=== PATIENT | female | born 1960 | race Caucasian/White ===

== ENCOUNTER 2022-07-30 14:29 | Outpatient (CLI) | payer BC, SELFPAY ==
--- NOTE | ~2022-07-30 | DEXA_ITS ---
Bone Density Report Name: RISHABH CONNER Age: 62 Sex: Female Ethnicity: White Date of : 1960 Indication: postmenopausal; screening for osteoporosis; parental hip fracture; prior fracture; Referring Provider: WEST, ERA Study: Bone densitometry was performed. Exam Date: July 30, 2022 Accession number: [id number] Bone Density: Region BMD T-score Z-score Classification AP Spine(L1-L4) 1.138 0.8 2.3 Normal Femoral Neck (Left) 0.649 -1.8 -0.5 Osteopenia Total Hip (Left) 0.895 -0.4 0.6 Normal Femoral Neck (Right) 0.635 -1.9 -0.6 Osteopenia Total Hip (Right) 0.938 0.0 0.9 Normal Total Hip Mean 0.917 -0.2 0.8 Normal World Health Organization criteria for BMD impression classify patients as: Normal (T-score at or above -1.0), Osteopenia (T-score between -1.0 and -2.5), or Osteoporosis (T-score at or below -2.5). 10-year Fracture Risk(1): Major Osteoporotic Fracture 29% Hip Fracture 3.6% Reported Risk Factors: [place] (), Neck BMD=0.635, BMI=26.6, previous fracture, parental fracture, smoking (1) FRAX(R) Version 3.08. Fracture probability calculated for an untreated patient. Fracture probability may be lower if the patient has received treatment. Clinical Information Provided by Patient: Has had a low trauma fracture Parent has had a hip fracture Smokes Has used the following medications: HRT (i.e. estrogen/hormone therapy), Vitamin D Patient maximum height was 65 Menopause Age: 57 No regular weight bearing exercise Drinks caffeinated beverages Onset of menses at age 12 Number of children 4 Impression: The patient has low bone mass, based on the Right Femoral Neck T-score. The patient has an estimated ten-year risk of hip fracture of 3.6% and an estimated ten-year risk of major fracture of 29%, based on the WHO FRAX algorithm. The patient has risk factors, including: parental hip fracture, smoking, previous fracture. Discussion: BONE DENSITY IS LOW AT ONE OR MORE SKELETAL SITES. THE PATIENT'S BMD AND CLINICAL RISK FACTORS CONTRIBUTE TO THIS PATIENT'S HIGH RISK OF FRACTURE. This patient's lowest T-score is low at one or more skeletal sites. It meets the World Health Organization's (WHO) criteria for ?low bone mass? (T-score between -1.0 and -2.5). The patient's 10-year risk of hip fracture and 10 year risk of a major osteoporotic fracture as calculated by FRAX exceeds the threshold where pharmacological therapy is recommended by the National Osteoporosis Foundation (NOF). However, all treatment decisions require clinical judgment and consideration of individual patient factors, including patient preferences, comorbidities, previous drug use, risk factors not captured in the FRAX model (e.g., frailty, falls, vitamin D deficiency, increased bone
--- NOTE | ~2022-07-30 | MM_ITS ---
EXAMINATION: MM scrn lukas implant BI w nannette HISTORY: Screening mammogram TECHNIQUE: Craniocaudal and mediolateral oblique 3-D tomosynthesis images with implant displacement a nd synthetic 2-D images were generated. Craniocaudal and mediolateral oblique views of the breasts wi thout implant displacement were obtained using full field digital mammography. CAD analysis was submi tted and interpreted. COMPARISON: No prior mammogram is available for comparison at this institution. BREAST PARENCHYMAL COMPOSITION: There are scattered areas of fibroglandular density. FINDINGS: There are bilateral subpectoral silicone implants. There is no evidence of suspicious mass, calcification, or architectural distortion to suggest malignancy in either breast. There has been no suspicious interval change. IMPRESSION: 1. No mammographic evidence of malignancy. 2. Recommend routine screening mammography in one year. BI-RADS Category 1: Negative Reviewed, dictated and finalized at location B. TWIST OPERATOR
== END 2022-07-30 14:30 | disposition home or self-care (01) ==
LOC: ANHIMG 14:34
PROVIDERS: PCP Nurse Practitioner Family; Visit Provider Nurse Practitioner
DX: Z12.31 Encounter for screening mammogram for malignant neoplasm of breast (principal); Z13.820 Encounter for screening for osteoporosis; Z78.0 Asymptomatic menopausal state; M85.852 Other specified disorders of bone density and structure, left thigh; M85.851 Other specified disorders of bone density and structure, right thigh
CPT/HCPCS: 77063; 77067; 77080

== ENCOUNTER → 2023-01-07 09:02 | Outpatient (CLI) | payer BC, SELFPAY ==
--- NOTE | ~2023-01-07 | XR_ITS ---
XR abdomen/kub 1V 01/07/2023 09:17 INDICATION: Gross hematuria TECHNIQUE: KUB COMPARISON: None FINDINGS: Bowel gas pattern is normal. There are cholecystectomy clips. Moderate colonic fecal loadin g. There is no evidence of free air, mass, organomegaly, ascites or obstruction. No abnormal calculi are seen. The bones appear intact. IMPRESSION: 1: No acute abdominal abnormality identified. Reviewed, dictated and finalized at location B.
--- NOTE | ~2023-01-07 | CT_ITS ---
EXAMINATION: CT abdomen pelvis wo/w con DATE: 01/07/2023 09:50 INDICATION: Gross hematuria TECHNIQUE: Computed tomography (CT) of the abdomen and pelvis was performed without and with 130 cc O mnipaque 350 intravenous contrast. The dose-length product was 958.91 mGy-cm. Automated exposure cont rol and iterative reconstruction technique were employed. COMPARISON: KUB dated 01/07/2023 FINDINGS: There are bilateral breast implants. Heart size normal. There is dependent atelectasis. No significant pleural or pericardial effusion. There is atherosclerosis without aneurysm. No lymphadeno tarah. There are small subcentimeter cysts of the liver. 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 The spleen, pancreas, adrenal glands and left kidney are unremarkable otherw ise. There is a small subcentimeter hypodensity of the right kidney, too small to characterize. Nonob structive bowel pattern. Bladder is grossly unremarkable. No hydronephrosis. No abnormal pelvic justina s or fluid collections. No acute osseous abnormality. No free air or free fluid. IMPRESSION: 1. 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 Reviewed, dictated and finalized at location B.
[2023-01-07 09:30] LABS: Estimated Glomerular Filt Rate > 60
== END ==
PROVIDERS: PCP Nurse Practitioner Family; Visit Provider Nurse Practitioner Family
DX: R31.0 Gross hematuria (principal); Q62.5 Duplication of ureter
CPT/HCPCS: 74018; 74178; Q9967

== ENCOUNTER 2023-12-23 13:02 | Outpatient (CLI) | payer OTHER, BC, SELFPAY ==
--- NOTE | ~2023-12-23 | MMUS_ITS ---
EXAMINATION: MM diagnostic lukas BI w nannette, US breast RT limited HISTORY: Lump and lateral aspect of right nipple TECHNIQUE: Implant displaced MLO, MLO and CC 3-D tomosynthesis images of both breasts were performed and synthetic 2-D images were generated. Bilateral implant ML, MLO and CC views. CAD analysis was sub mitted and interpreted. High resolution targeted 8:00 lateral right periareolar breast ultrasound was performed. COMPARISON: 07/30/2022 bilateral implants screening mammogram BREAST PARENCHYMAL COMPOSITION: There are scattered areas of fibroglandular density. FINDINGS: MAMMOGRAPHIC FINDINGS: Status post bilateral augmentation mammoplasty. No suspicious mass or architectural distortion, malignant calcification, skin thickening or retractio n or significant new or developing density is detected. ULTRASOUND: No suspicious mass or shadowing, cyst or other significant sonographic abnormalities detected in the area of clinical complaint at 8:00 near the nipple. IMPRESSION: 1. No evidence of malignancy 2. Routine annual mammographic screening is recommended BI-RADS Category 1: Negative Reviewed, dictated and finalized at location B. IMPRESSION: 1. No evidence of malignancy 2. Routine annual mammographic screening is recommended BI-RADS Category 1: Negative
== END 2023-12-23 13:03 | disposition home or self-care (01) ==
LOC: ANHIMG 13:15
PROVIDERS: PCP Family Medicine; Visit Provider Nurse Practitioner
DX: N63.10 Unspecified lump in the right breast, unspecified quadrant (principal); Z98.82 Breast implant status
CPT/HCPCS: 76642; 77062; 77066; G0279

== ENCOUNTER 2024-08-03 08:12 | Outpatient (CLI) | payer BC, SELFPAY ==
--- NOTE | ~2024-08-03 | DEXA_ITS ---
Bone Density Report Name: RISHABH CNONER Age: 64 Sex: Female Ethnicity: White Date of : 1960 Indication: postmenopausal; screening for osteoporosis; parental hip fracture; prior fracture; Referring Provider: WEST, ERA Study: Bone densitometry was performed. Exam Date: August 03, 2024 Accession number: [id number] Bone Density: Region BMD T-score Z-score Classification AP Spine(L1-L4) 1.123 0.7 2.3 Normal Femoral Neck (Left) 0.659 -1.7 -0.3 Osteopenia Total Hip (Left) 0.898 -0.4 0.7 Normal Femoral Neck (Right) 0.638 -1.9 -0.5 Osteopenia Total Hip (Right) 0.911 -0.3 0.8 Normal Total Hip Mean 0.904 -0.4 0.8 Normal World Health Organization criteria for BMD impression classify patients as: Normal (T-score at or above -1.0), Osteopenia (T-score between -1.0 and -2.5), or Osteoporosis (T-score at or below -2.5). 10-year Fracture Risk(1): Major Osteoporotic Fracture 29% Hip Fracture 3.6% Reported Risk Factors: [place] (), Neck BMD=0.638, BMI=24.6, previous fracture, parental fracture, smoking (1) FRAX(R) Version 3.08. Fracture probability calculated for an untreated patient. Fracture probability may be lower if the patient has received treatment. Previous Exams: Region Exam Age BMD T-score BMD Change BMD Change Date g/cm2 vs Baseline vs Previous AP Spine (L1-L4) 08/03/2024 64 1.123 0.7 -0.015 (-1.3%) -0.015 (-1.3%) 07/30/2022 62 1.138 0.8 Total Hip(Left) 08/03/2024 64 0.898 -0.4 0.003 (0.3%)# 0.003 (0.3%)# 07/30/2022 62 0.895 -0.4 Total Hip(Right) 08/03/2024 64 0.911 -0.3 -0.028 (-2.9%) -0.028 (-2.9%) 07/30/2022 62 0.938 0.0 *Denotes significance at 95% confidence level, LSC for AP Spine = 0.022 g/cm2, LSC for Total Hip = 0.027 g/cm2 # Denotes dissimilar scan types or analysis methods Clinical Information Provided by Patient: Has had a low trauma fracture Parent has had a hip fracture Smokes Has used the following medications: HRT (i.e. estrogen/hormone therapy), Vitamin D, Calcium Patient maximum height was 65 Menopause Age: 57 No regular weight bearing exercise Drinks caffeinated beverages Onset of menses at age 12 Number of children 4 Impression: The patient has low bone mass, based on the Right Femoral Neck T-score. The patient has an estimated ten-year risk of hip fracture of 3.6% and an estimated ten-year risk of major fracture of 29%, based on the WHO FRAX algorithm. The patient has risk factors, including: parental hip fracture, smoking, previous fracture. No significant bone loss was observed. Discussion: BONE DENSITY IS LOW AT ONE OR MORE SKELETAL SITES. THE PATIENT'S BMD AND CLINICAL RISK FACTORS CONTRIBUTE TO THIS PATIENT'S HIGH RISK OF FRACTURE. This patient's lowest T-score is low at one or more skeletal sites. It meets the World Health Organization's (WHO) criteria for ?low bone mass? (T-score between -1.0 and -2.5). The patient's 10-year risk of hip fracture and 10 year risk of a major osteoporotic fracture as calculated by FRAX exceeds the threshold where pharmacological therapy is recommended by the National Osteoporosis Foundation (NOF). However, all treatment decisions require clinical judgment and consideration of individual patient factors, including patient preferences, comorbidities, previous drug use, risk factors not captured in the FRAX model (e.g., frailty, falls, vitamin D deficiency, increased bone turnover, interval significant decline in bone density) and possible under or overestimation of fracture risk by FRAX. The patient should follow a healthful lifestyle (good nutrition with adequate calcium and vitamin D, and appropriate weight-bearing exercise). Follow-Up: Consider a repeat BMD and Vertebral Fracture Assessment (VFA) exam in 2 years or sooner if medically necessary, to reassess this patient's status. Reported by: MEDARDO on 08/03/2024 8:50:00 AM. Reviewed, dictated and finalized at location AaMdi POLANCO
== END 2024-08-03 08:13 | disposition home or self-care (01) ==
LOC: ANHIMG 08:15
PROVIDERS: PCP Nurse Practitioner Family; Visit Provider Nurse Practitioner
DX: M85.88 Other specified disorders of bone density and structure, other site (principal); M85.852 Other specified disorders of bone density and structure, left thigh; M85.851 Other specified disorders of bone density and structure, right thigh
CPT/HCPCS: 77080

== ENCOUNTER 2025-02-21 08:27 | Outpatient (CLI) | payer BC, SELFPAY ==
--- NOTE | ~2025-02-21 | MM_ITS ---
EXAMINATION: MM scrn lukas implant BI w nannette HISTORY: Screening mammogram TECHNIQUE: Craniocaudal and mediolateral oblique 3-D tomosynthesis images with implant displacement a nd synthetic 2-D images were generated. Craniocaudal and mediolateral oblique views of the breasts wi thout implant displacement were obtained using full field digital mammography. CAD analysis was submi tted and interpreted. COMPARISON: 12/23/2023, 07/30/2022 BREAST PARENCHYMAL COMPOSITION: There are scattered areas of fibroglandular density. FINDINGS: There is no evidence of suspicious mass, calcification, or architectural distortion to sugg est malignancy in either breast. There has been no suspicious interval change. IMPRESSION: No mammographic evidence of malignancy. Recommend routine screening mammography in one year. BI-RADS Category 1: Negative Reviewed, dictated and finalized at location .
--- OUTSIDE RECORDS SUMMARY | 2025-02-21 08:32 | XMS_ITS | Clinical Summary ---
Author Organization [facility] Address [address] [place] [address] Care Team Providers Care Distillation Operator Name Role Phone Jasmine Anderson MD Primary Care Provider + Source Comments [facility],non-owned Affiliates and Associated Physician Practices is amultiple site organization consisting of ambulatory clinics and hospital sitesin [place], [place], [place] and [place]. This disclosure is being madepursuant to the Care Everywhere program and may not contain all information available regarding this patient. Last updated 18.[facility] Allergies Active Allergy Reactions Criticality Noted Date Comments Amoxicillin Itching Medium 03/15/2021 Codeine Unknown 11/15/2020 Feels like going to passout Medications * Be aware that medications may not be up to date on this document. Alwaysverify current medications with the patient. estradiol (VAGIFEM) 10 MCG vaginal tablet estradiol 10 mcg vaginal tablet INSERT 1 TABLET VAGINALLY TWICE A WEEK Active benzonatate (TESSALON) 200 MG capsule Take 1 (one) capsule by mouth 3 times daily as needed for Cough 30 capsule Active Active Problems No known active problems Immunizations Immunization Administration Dates Next Due INFLUENZA VACCINE, QUADR. (F LUZONE; FLULAVAL; FLUARIX; AFLURIA QUADRIVALENT; 6MO+), 0.5 ML (IIV4) 06/23/2016 Social History Tobacco Use Types Packs/Day Years Used Date Smoking Tobacco: Every Day Cigarettes 0.3 40 Smokeless Tobacco: Never Tobacco Cessation:Ready to Q uit: No; Counseling Given: Yes Alcohol Use Standard Drinks/Week Comments Yes 5 (1 standard drink = 0.6 oz pur e alcohol) occasionally PHQ-2 Answer Date Recorded PHQ2 TOTAL SCORE 0 05/21/2021 Comments No Sex and Gender Information Value Date Recorded Sex Assigned at Not on file Legal Sex Female 7:36 AM CDT Gender Identity Not on file Sexual Orientation Not on file Last Filed Vital Signs Vital Sign Reading Time Taken Comments Blood Pressure 122/78 03/15/2021 12:04 PM CDT Pulse 80 03/15/2021 12:04 PM CDT Temperature 37.1 C (98.8 F) 03/15/2021 12:04 PM CDT Respiratory Rate 20 03/15/2021 12:04 PM CDT Oxygen Saturation 97% 03/15/2021 12:04 PM CDT Inhaled Oxygen Concentration 99% 06/22/2016 1 1:34 AM BRANCH EMPLOYMENT COORDINATOR Weight 70.3 kg (155 lb) 03/15/2021 12:04 PM CDT Height 162.6 cm (5' 4) 03/15/2021 12:04 PM CDT Body Mass Index 26.61 03/15/2021 12:04 PM CDT Plan of Treatment Health Maintenance Due Date Last Done Comments COLOGUARD (AGES 45-75) - COL ON CA SCREENING 1960 COLON MONITORING 1960 COLONOSCOPY - COLON CA SCREENING 1962 CT COLONOGRAPHY - COLON CA SCREENING 1960 Colorectal Cancer Screening 1960 FIT - COLON CA SCREENING 1960 FLEX SIG - COLON CA SCREENING 1960 LIPID TESTING 1960 MAMMOGRAM 1960 HIV SCREENING 1977 HEPATITIS C SCREENING 01/30/1980 DTAP/TDAP/TD VACCINES (1 - Tdap) 1981 PNEUMOCOCCAL VACCINE 50+ (1 of 1 - PCV) 02/04/2012 ZOSTER VACCINE (1 of 2) 02/04/2012 SCREENING FOR DIABETES 11/15/2020 COVID-19 VACCINE (2 - 2023-2 5 season) 2024 10/21/2020 DEPRESSION SCREENING 08/15/2024 INFLUENZA VACCINE (Season Ended) 2025 05/30/2020, 06/23/2016 Respiratory Syncytial Virus (RSV) Vaccine Pt: or over 60 yrs (1 - 1-dose 75+ series) 2037 HEPATITIS B VACCINE Aged Out No longe r eligible based on patient's age to complete this topic HIB VACCINE Aged Out No longer eligi ble based on patient's age to complete this topic HPV VACCINE Aged Out No longer eligi ble based on patient's age to complete this topic MENINGOCOCCAL (Group B) VACCINE SHARED DECISION-MAKING Aged Out No longer eligible based on patient's age to complete this topic MENINGOCOCCAL GROUPS A/C/Y/W VACCINE Aged Out No longer eligible b ased on patient's age to complete this topic Insurance [facility] Care Teams Distillation Operator Relationship Specialty Start Date End Date Jasmine Anderson MD [address] [place] [address] PCP - General 08/21/18
--- OUTSIDE RECORDS SUMMARY | 2025-02-21 08:32 | XMS_ITS | Clinical Summary ---
Author Organization [facility] Address [address] [place] [address] Phone Care Team Providers Care Resource Conservationist Name Role Phone Lou Garcia MD Primary Care Provider + Allergies Active Allergy Reactions Criticality Noted Date Comments Amoxicillin Hives,Itching Medium 03/15/2021 Codeine Hives,Mental status changes Medium 11/15/2020 Feels like going to passout Medications azelastine (ASTELIN) 137 mcg (0.1 %) nasal spray azelastine 137 mcg (0.1 %) nasal spray aerosol USE 1 SPRAY IN EACH NOSTRIL EVERY 12 HOURS Active estradioL (VAGIFEM) 10 mcg tablet estradiol 10 mcg vaginal tablet INSERT 1 TABLET VAGINALLY TWICE A WEEK Active ibandronate (BONIVA) 150 mg tablet [address] (VOLTAREN) 75 mg EC tablet Take 1 tablet (75 mg total) by mouth 2 (two) times a day as needed Active ezetimibe (ZETIA) 10 mg tablet Take 1 tablet (10 mg total) by mouth daily 4 Active latanoprost (XALATAN) 0.005 % ophthalmic solution INSTILL 1 DROP IN BOTH EYES EVERY NIGHT AT BEDTIME 4 Active lifitegrast (Xiidra) 5 % dropperette 0.1 each (1 drop total) 2 (two) times a day Active rosuvastatin (CRESTOR) 20 mg tablet Take 1 tablet (20 mg total) by mouth daily 4 Active benzonatate (TESSALON) 200 mg capsuleIndicatio ns:Acute lower respiratory infection Take 1 capsule (200 mg total) by mouth 3 (three) times a day as needed for cough keep tessalon out of reach of children, especially children under the age of 10, due to possible serious risk such as if ingested by children under the age of 10. 30 capsule 4 Active Additional Information Patient not taking.Reported on 07/31/2024 fluticasone propionate (FLONASE) 50 mcg/actuation nasal sprayIndications :Acute serous otitis media of left ear, recurrence not specified Administer 2 sprays into each nostril daily 1 each 4 Active promethazine-DM (PROMETHAZINE-DM ) 1.25-3 mg/mL syrupIndications :Cough Take 5 mL by mouth every 4 (four) hours as needed for cough 120 mL 4 Active albuterol HFA (PROVENTIL HFA,VENTOLIN HFA,PROAIR HFA) 90 mcg/actuation inhalerIndicatio ns:Lower respiratory infection (e.g., bronchitis, pneumonia, pneumonitis, pulmonitis) Inhale 2 puffs every 6 (six) hours as needed for wheezing or shortness of breath 1 each 4 Active Active Problems Problem Noted Date Diagnosed Date Pain in right foot 07/19/2023 Pain in throat 07/13/2023 Other chest pain 04/13/2023 Palpitations 04/13/2023 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 03/11/2023 Liver cyst 03/11/2023 Arteriosclerosis of coronary artery 01/27/2023 Hyperlipidemia 10/16/2020 Snoring 09/04/2020 Syncope and collapse 07/19/2016 Tobacco dependence syndrome 05/19/2016 Supraventricular tachycardia 09/28/2012 Immunizations Immunization Administration Dates Next Due Influenza, Quadrivalent, Spl it, Preservative Free, Intramuscular 08/10/2021,05/30/2020,06/23/2016 Tdap 03/22/2013 Social History Tobacco Use Types Packs/Day Years Used Date Smoking Tobacco: Never Assessed Comments Unknown Sex and Gender Information Value Date Recorded Sex Assigned at Not on file Legal Sex Female 12:41 AM BENZENE WASHER Gender Identity Not on file Sexual Orientation Not on file Obstetrics History Last Filed Vital Signs Vital Sign Reading Time Taken Comments Blood Pressure 125/82 07/31/2024 6:12 PM BENZENE WASHER Pulse 74 07/31/2024 6:12 PM BENZENE WASHER Temperature 36.8 C (98.2 F) 07/31/2024 6:12 PM BENZENE WASHER Respiratory Rate 18 07/31/2024 6:12 PM BENZENE WASHER Oxygen Saturation 93% 07/31/2024 6:12 PM BENZENE WASHER Inhaled Oxygen Concentration - - Weight 67.7 kg (149 lb 4.8 oz) 07/31/2024 6:12 P M BENZENE WASHER Height 162.6 cm (5' 4.02) 07/31/2024 6:12 PM CS T Body Mass Index 25.61 07/31/2024 6:12 PM BENZENE WASHER Plan of Treatment Health Maintenance Due Date Last Done Comments Cervical Cancer Screening 1960 Colon Cancer Screening-Colonoscopy 1962 Depression Screening 1960 Hepatitis C Screening 1960 Hepatitis B Screening 02/04/1980 Regular Well Visit/Exam 18-64 02/04/1980 Zoster Vaccine (1 of 2) 02/04/2012 DTaP/Tdap/Td Vaccine (2 - Td or Tdap) 03/22/2023 03/22/2013 Breast Cancer Screening-Mammogram 07/30/2023 07/30/2022 Covid-19 Vaccine (3 - season) 2024 06/14/2021, 10/21/2020 Influenza Vaccine (#1) 2025 , 08/10/2021, 05/30/2020, Additional history exists Pneumococcal vaccine <65 Aged Out No longer eligible based on patient's age to complete this topic Insurance [facility] [employer] Care Teams Resource Conservationist Relationship Specialty Start Date End Date Lou Garcia MD [address] [facility] [address] [place] [address] PCP - General Family Medicine 06/09/24
--- OUTSIDE RECORDS SUMMARY | 2025-02-21 08:32 | XMS_ITS | Referral Summary ---
Author Organization [facility] Address [address] [place] [address] Phone Care Team Providers Care Stock Analyst Name Role Phone Lou Garcia MD Primary [...] on file Legal Sex Female 12:41 AM POWER REACTOR OPERATOR Gender Identity Not on file Sexual Orientation Not on file Last Filed Vital Signs Vital Sign Reading Time Taken Comments Blood Pressure 125/82 07/31/2024 6:12 PM POWER REACTOR OPERATOR Pulse 74 07/31/2024 6:12 PM POWER REACTOR OPERATOR Temperature 36.8 C (98.2 F) 07/31/2024 6:12 PM POWER REACTOR OPERATOR Respiratory Rate 18 07/31/2024 6:12 PM POWER REACTOR OPERATOR Oxygen Saturation 93% 07/31/2024 6:12 PM POWER REACTOR OPERATOR Inhaled Oxygen Concentration - - Weight 67.7 kg (149 lb 4.8 oz) 07/31/2024 6:12 P M POWER REACTOR OPERATOR Height 162.6 cm (5' 4.02) 07/31/2024 6:12 PM CS T Body Mass Index 25.61 07/31/2024 6:12 PM POWER REACTOR OPERATOR Plan of Treatment Not on file Insurance [facility] [employer] Care Teams Stock Analyst Relationship Specialty Start Date End Date Lou Garcia MD [address] [place] [address] [address] PCP - General Family Medicine 06/09/24
--- OUTSIDE RECORDS SUMMARY | 2025-02-21 08:32 | XMS_ITS | Data Portability ---
Author Organization [place] [facility], Main Office Address [address] [place] [address] Care Team Providers Care It Project Coordinator Name Role Phone ELIZA GARCIA Primary Care Provider ELIZA GARCIA Referring Provider [phone] Assessment Encounter Date Assessment Date Assessment LastModified by Organization Details LastModified Time 07/20/2023 07/20/2023 63-year-old patient presents today with right foot pain after stepping in correctly and rolling the foot a week ago Tuesday. She presented to the emergency room where x-rays were taken and she was told she had a fracture. She was placed in a boot and told to follow-up with us. She states she has been ambulating well in the boot. Rates her pain a 5/10. imaging: X-rays reviewed of the right foot show a nondisplaced Bourgeois fracture to the base of the 5th metatarsal. Physical exam: Boot was removed. Pain with palpitation over the 5th metatarsal. No issues with ankle range of motion. Able to wiggle toes. Sensation intact. At this time we will keep her nonweightbearing in the boot. She states she has a knee scooter at home to use. We discussed the importance of wearing the boot at all times like it is a cast and keeping weight off of the foot. We will see her back in 2 weeks with repeat x-rays to check her progress. Not available 07/20/2023 21:45:27 08/05/2023 08/05/2023 63-year-old patient presents today for follow up of right 5th metatarsal bourgeois fracture. She was placed in a boot and told to stay nonweightbearing. She states she has been ambulating well with a knee scooter. Rates her pain a 4/10. Imaging: X-rays reviewed of the right foot show a healing nondisplaced Bourgeois fracture to the base of the 5th metatarsal. Physical exam: Boot was removed. Pain with palpitation over the 5th metatarsal. No issues with ankle range of motion. Able to wiggle toes. Sensation intact. At this time she is 4 weeks out from her injury. We will keep her nonweightbearing in the boot for another few weeks. We will see her back in 2 weeks with repeat x-rays to check her progress. Not available 08/05/2023 13:48:09 08/19/2023 08/19/2023 63-year-old patient presents today for follow up of right 5th metatarsal bourgeois fracture. She was placed in a boot and told to stay nonweightbearing. She states she has been ambulating well with a knee scooter. Rates her pain a 0/10. Imaging: X-rays reviewed of the right foot show a healing nondisplaced Bourgeois fracture to the base of the 5th metatarsal. Physical exam: Boot was removed. No pain with palpitation over the 5th metatarsal. No issues with ankle range of motion. Able to wiggle toes. Sensation intact. At this time she about 7 weeks out from her injury. She states she has not been having any pain and would like to try weight bearing. We will have her start weight bearing in the boot for the next week or so and then slowly transition out of it as she feels more comfortable. We discussed to limit herself by her own pain and return to the boot if she does not feel ready. She is in agreement with this plan. We can see her back if her pain returns or if she is having issues with stiffness. Not available 08/19/2023 09:32:02 Plan of Treatment Reminders Order Date Submit Date Provider Last Modified By Organization Details Last Modified Time Details Appointments None recorded. Lab CMP, serum or plasma 2022 023 [facility] (Lab), [address] [place], [address], 19:31:24 Referral None recorded. Procedures None recorded. Surgeries None recorded. Imaging XR, foot, 3 or more view 2023 024 [email or web address] [facility] [place], [address], [place], [address], 4 16:29:36 XR, foot 2022 023 [email or web address] [facility] [place], [address], [place], [address], 3 13:49:25 XR, foot, 3 or more view 2022 023 [email or web address] [facility] [place], [address], [place], [address], 3 21:42:26 Medication Orders Diflucan 150 mg tablet 2023 024 [id number], [address], [place], [place], [id number], 4 16:15:18 Patient TargetsNo targets recorded. Patient InstructionsNo instructions recorded. Reason for Referral None Reported. Results Created Date Observation Date Name Description Value Unit Range Abnormal Flag Note LastModifiedBy Organization Detail LastModifiedTime 03/11/2003/11/2023 COMPR EHENS APRIL METAB OLIC PANEL sodium 137 mmol/ L 137-14 5 Not Available [facility] (Lab) [address] [place], [address], 03/11/2023 19:31:24 03/11/20 23 03/11/2023 COMPR EHENS APRIL METAB OLIC PANEL potassium 4.0 mmol/ L 3.5-5. 1 Not Available [facility] (Lab) [address] [place], [address], 03/11/2023 19:31:24 03/11/20 23 03/11/2023 COMPR EHENS APRIL METAB OLIC PANEL chloride 101 mmol/ L 98-107 Not Available [facility] (Lab) [address] [place], [address], 03/11/2023 19:31:24 03/11/20 23 03/11/2023 COMPR EHENS APRIL METAB OLIC PANEL carbon dioxide 26 mmol/ L 22-30 Not Available [facility] (Lab) [address] [place], [address], 03/11/2023 19:31:24 03/11/20 23 03/11/2023 COMPR EHENS APRIL METAB OLIC PANEL anion gap 14.0 mmol/ L 14-22 Not Available [facility] (Lab) [address] [place], [address], 03/11/2023 19:31:24 03/11/20 23 03/11/2023 COMPR EHENS APRIL METAB OLIC PANEL glucose 88 mg/dL 70-99 Not Available [facility] (Lab) [address] [place], [address], 03/11/2023 19:31:24 03/11/20 23 03/11/2023 COMPR EHENS APRIL METAB OLIC PANEL BUN 13 mg/dL 8-19 Not Available [facility] (Lab) [address] [place], [address], 03/11/2023 19:31:24 03/11/20 23 03/11/2023 COMPR EHENS APRIL METAB OLIC PANEL creatinine 0.72 mg/dL 0.66-1 .25 Not Available [facility] (Lab) [address] [place], [address], 03/11/2023 19:31:24 03/11/20 23 03/11/2023 COMPR EHENS APRIL METAB OLIC PANEL GFR >60 Refer ence Range : [place] [facility] GFR Healt hy Adult : >60 mL/mi n/1.7 3 m2 Chron ic Kidne y Disea se: 15-60 mL/mi n/1.7 3 m2 Kidne y Failu re: <15/m L/min /1.73 m2 www.n iddk. nih.g ov The MDRD study equat ion has not been valid ated in child yajaira <18 years of age; pregn ant women ; the elder ly >85 years of age; or in some racia l or ethni c subgr oups, such as Hispa nics. Outsi de the valid ated veena eters , estim ated GFR is less accur ate, requi ring clini tate judgm ent on a case- by-ca se basis . Clini tate inter preta tion for other races and ages must be made by the clini malcom. The MDRD study equat ion has not been valid ated for the evalu ation of serum creat inine relat ed to nutri baljinder l statu s or medic ation usage . For perso ns <18 years of age, a pedia tric GFR calcu lator is avail able on the [facility] websi te: https ://nubia w.suleiman soriano.o rg/pr ofess ional s/kdo qi/gf r_cal culat or Not Available [facility] (Lab) [address] [place], [address], 03/11/2023 19:31:24 03/11/20 23 03/11/2023 COMPR EHENS APRIL METAB OLIC PANEL alkaline phosphatase 76 U/L 38-126 Not Available [facility] (Lab) [address] [place], [address], 03/11/2023 19:31:24 03/11/20 23 03/11/2023 COMPR EHENS APRIL METAB OLIC PANEL alanine aminotransfe rase 19 U/L 0-35 Not Available [facility] (Lab) [address] [place], [address], 03/11/2023 19:31:24 03/11/20 23 03/11/2023 COMPR EHENS APRIL METAB OLIC PANEL aspartate aminotransfe rase 27 U/L 15-37 Not Available [facility] (Lab) [address] [place], [address], 03/11/2023 19:31:24 03/11/20 23 03/11/2023 COMPR EHENS APRIL METAB OLIC PANEL bilirubin, total 0.50 mg/dL 0.20-1 .30 Not Available [facility] (Lab) [address] [place], [address], 03/11/2023 19:31:24 03/11/20 23 03/11/2023 COMPR EHENS APRIL METAB OLIC PANEL calcium 9.5 mg/dL 8.4-10 .2 Not Available [facility] (Lab) [address] [place], [address], 03/11/2023 19:31:24 03/11/20 23 03/11/2023 COMPR EHENS APRIL METAB OLIC PANEL total protein 7.3 g/dL 6.3-8. 2 Not Available [facility] (Lab) [address] [place], [address], 03/11/2023 19:31:24 03/11/2003/11/2023 COMPR EHENS APRIL METAB OLIC PANEL albumin 4.5 g/dL 3.4-5. 0 Not Available [facility] (Lab) [address] [place], [address], 03/11/2023 19:31:24 03/11/2003/11/2023 COMPR EHENS APRIL METAB OLIC PANEL globulin 2.8 g/dL 2.6-4. 2 Not Available [facility] (Lab) [address] [place], [address], 03/11/2023 19:31:24 03/11/20 23 03/11/2023 COMPR EHENS APRIL METAB OLIC PANEL A/G ratio 1.6 ratio 1.0-2. 0 Not Available [facility] (Lab) [address] [place], [address], 03/11/2023 19:31:24 02/22/20 23 02/18/2023 CT, coron yola calci um score No observ ation record ed. [email or web address] [facility] [address], [place], [address], 02/22/2023 09:03:25 07/15/20 23 07/12/2023 XR, foot, 3 or more view No observ ation record ed. [email or web address] Not Available 08/2022 14:32:31 07/20/20 XR, foot, 3 or more view No observ ation record ed. [email or web address] [facility] [place] [address], [place], [address], 07/20/2023 21:42:25 08/05/20 23 XR, foot No observ ation record ed. [email or web address] [facility] [place] [address], [place], [address], 08/05/2023 13:46:01 08/19/19 XR, foot, 3 or more view No observ ation record ed. [email or web address] [facility] [place] [address] [facility] [address], [place], [address], 08/19/2023 09:28:31 12/23/19 24 12/23/2023 MAMMO , scree eliane, digit al, bilat eral No observ ation record ed. [email or web address] [facility] [address], [place], [address], 12/25/2023 17:03:11 08/03/20 24 08/03/2024 imagi ng/di agnos tic resul t No observ ation record ed. [facility] [address], [place], [address], 08/03/2024 16:28:07 Result Notes None recorded. 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 SUNI Hollins [address], [place], [address] , [employer] 3 15:46:12 Liver cyst 62548895 Active 2022 SUNI Hollins [address], [place], [address] , [employer] 3 15:48:02 Pain in throat 736382431 Active 2022 Eliza Garcia MD [address], [place], [address] , [employer] 3 17:35:48 Pain in right foot 2800748281607 07 Active 2022 Edna Brown [facility], [facility] 3 11:14:46 Candidiasi s of skin 55975721 Active 2023 CHELE Day [address], [place], [address] , [employer] 4 16:13:22 Candidiasi s of vagina 37557855 Active 2023 CHELE Day [address], [place], [address] , [employer] 4 16:13:27 Overweight 332361095 Active 2023 CHELE Day [address], [place], [address] , [employer] 4 16:19:36 Problem Notes None recorded. Procedures Surgical History Date Name Laterality Status Provider Name and Address Organization Details Recorded Time Cholecystectomy completed Not Available [employer] 10/13/2022 12:52:25 ligation of fallopian tube completed Not Available [facility] 10/13/2022 12:52:25 Unlisted procedure shoulder completed Not Available [facility] 10/13/2022 12:52:25 Imaging Results None recorded. Procedure Notes None recorded. Medical Equipment None Reported. Allergies Allergen ID Allergen Name Allergen Category Reaction Reaction Severity Criticality Documentation Date Start Date Code Code System Note Provider Name and Address Organization Details Recorded Time 21161 amoxicill in medicatio n itching moderate Not available 10/13/2022 723 RxNorm Not Available [facility] 3 12:58:44 73816 codeine medicatio n Not available Not available Not available 07/20/2023 2670 RxNorm TALYA Martinez, [facility] 3 11:09:35 Medications Name Sig Start Date Stop Date Status Note LastModified by Organization Details LastModified Time progester one 225mg caps TAKE ONE CAPSULE BY MOUTH daily EVERY EVENING 06/13 completed Not Available Not Available Not Available cp progester one 225mg caps TAKE 1 CAPSULE BY MOUTH IN THE EVENING 06/13 completed Not Available Not Available Not Available cp progester one 225mg caps eaches 06/13 completed Not Available Not Available Not Available amoxicill in 500 mg capsule 07/20 completed Not Available Not Available Not Available latanopro st 0.005 % eye drops INSTILL 1 DROP IN BOTH EYES EVERY NIGHT AT BEDTIME active Not Available Not Available No t Available fluconazo le 100 mg tablet 07/20 completed Not Available Not Available Not Available promethaz ine-DM 6.25 mg-15 mg/5 mL oral syrup TAKE 5 ML BY MOUTH EVERY 4 HOURS NEEDED FOR COUGH 06/13 completed Not Available Not Available Not Available doxycycli ne hyclate 100 mg capsule active Not Available Not Available Not Available clindamyc in HCl 300 mg capsule TAKE 1 CAPSULE BY MOUTH EVERY 6 HOURS active Not Available Not Available No t Available azithromy ivonne 250 mg tablet TAKE 2 TABLETS BY MOUTH FOR 1 DAY THEN TAKE 1 TABLET BY MOUTH DAILY FOR 4 DAYS 06/13 completed Not Available Not Available Not Available Lidocaine Viscous 2 % mucosal solution 07/20 completed Not Available Not Available Not Available fluconazo le 150 mg tablet TAKE 1 TABLET BY MOUTH AT ONSET OF SYMPTOMS . MAY REPEAT IN 3 DAYS NEEDED active Not Available Not Available No t Available benzonata te 200 mg capsule TAKE 1 CAPSULE THREE TIMES DAILY NEEDED FOR COUGH. KEEP OUT OF THE REACH OF CHILDREN ESPECIAL LY UNDER THE AGE OF 10 DUE TO RISK OF 06/13 completed Not Available Not Available Not Available clarithro mycin 500 mg tablet 07/20 completed Not Available Not Available Not Available hydrocodo ne 5 mg-acetam inophen 325 mg tablet 07/20 completed Not Available Not Available Not Available promethaz ine 6.25 mg/5 mL oral syrup 07/20 completed Not Available Not Available Not Available metronida zole 0.75 % (37.5 mg/5 gram) vaginal gel I 1 APL VAGINALL Y HS FOR 5 DAYS 07/20 completed Not Available Not Available Not Available prednison e 20 mg tablet TAKE 2 TABLETS BY MOUTH EVERY DAY FOR 5 DAYS 06/13 completed Not Available Not Available Not Available prednison e 5 mg tablet 06/13 completed Not Available Not Available Not Available terconazo le 0.8 % vaginal cream INSERT 1 APPLICAT ORFUL VAGINALL Y AT BEDTIME FOR 3 DAYS 07/20 completed Not Available Not Available Not Available penicilli n V potassium 500 mg tablet 07/20 completed Not Available Not Available Not Available ciproflox acin 500 mg tablet TK 1 T PO BID 07/20 completed Not Available Not Available Not Available sulfameth oxazole 800 mg-trimet hoprim 160 mg tablet Take 1 tablet every 12 hours by oral route for 3 days. 07/20 completed Not Available Not Available Not Available doxycycli ne monohydra te 100 mg tablet 07/20 completed Not Available Not Available Not Available terconazo le 80 mg vaginal supposito ry 07/20 completed Not Available Not Available Not Available amoxicill in 875 mg tablet Take 1 tablet every 12 hours by oral route for 10 days. active Not Available Not Available No t Available benzonata te 100 mg capsule 10/30 /2024 completed Not Available Not Available Not Available triamcino lone acetonide 40 mg/mL suspensio n for injection Take 40 mg by injectio n route. 07/20 completed Not Available Not Available Not Available cephalexi n 500 mg capsule 07/20 completed Not Available Not Available Not Available oseltamiv ir 75 mg capsule Take 1 capsule twice a day by oral route for 5 days. 07/20 completed Not Available Not Available Not Available clotrimaz ole-betam ethasone 1 %-0.05 % topical cream APPLY EXTERNAL LY TO RASH TWICE DAILY FOR 7 DAYS 07/20 completed Not Available Not Available Not Available diclofena c sodium 75 mg tablet,de layed release TAKE 1 TABLET BY MOUTH TWICE DAILY NEEDED 06/13 completed Not Available Not Available Not Available azelastin e 137 mcg (0.1 %) nasal spray USE 1 SPRAY IN EACH NOSTRIL EVERY 12 HOURS 07/20 completed Not Available Not Available Not Available levofloxa ivonne 500 mg tablet TK 1 T PO QD 07/20 completed Not Available Not Available Not Available methylpre dnisolone 4 mg tablets in a dose pack FOLLOW PACKAGE DIRECTIO NS 06/13 completed Not Available Not Available Not Available albuterol sulfate HFA 90 mcg/actua tion aerosol inhaler INHALE 2 PUFFS BY MOUTH EVERY 6 HOURS NEEDED FOR WHEEZING OR SHORTNES S OF BREATH 06/13 completed Not Available Not Available Not Available oxybutyni n chloride 5 mg tablet 12/24 completed Not Available Not Available Not Available cefdinir 300 mg capsule 07/20 completed Not Available Not Available Not Available fluticaso ne propionat e 50 mcg/actua tion nasal spray,stevan pension SHAKE LIQUID AND USE 1 TO 2 SPRAYS IN EACH NOSTRIL TWICE DAILY 07/20 completed Not Available Not Available Not Available doxycycli ne hyclate 100 mg tablet TAKE 1 TABLET BY MOUTH TWICE DAILY FOR 10 DAYS 07/20 completed Not Available Not Available Not Available amoxicill in 875 mg-potass ium clavulana te 125 mg tablet 07/20 completed Not Available Not Available Not Available Zetia 10 mg tablet Take 1 tablet every day by oral route. active Not Available Not Available No t Available rosuvasta tin 5 mg tablet TAKE 1 TABLET BY MOUTH EVERY DAY active Not Available Not Available No t Available rosuvasta tin 20 mg tablet TAKE 1 TABLET BY MOUTH DAILY active Not Available Not Available No t Available nitrofura ntoin monohydra te/macroc rystals 100 mg capsule TAKE 1 CAPSULE BY MOUTH EVERY 12 HOURS FOR 7 DAYS 07/20 completed Not Available Not Available Not Available duloxetin e 20 mg capsule,d elayed release TK 1 C PO BID 12/24 completed headache Not Available Not Available Not Available ibandrona te 150 mg tablet 06/13 completed Not Available Not Available Not Available estradiol 10 mcg vaginal tablet INSERT ONE TABLET VAGINALL Y TWICE WEEKLY 06/13 completed Not Available Not Available Not Available ROUTE [employer]OR Thyroid 30 mg tablet TAKE 1 TABLET BY MOUTH TWICE DAILY 06/13 completed Not Available Not Available Not Available ROUTE [employer]OR Thyroid 60 mg tablet TAKE 1 TABLET BY MOUTH EVERY DAY ON AN EMPTY STOMACH 30 TO 60 MINUTES PRIOR TO EATING 07/20 completed Not Available Not Available Not Available Nuvessa 1.3 % (65 mg/5 gram) vaginal gel 07/20 completed Not Available Not Available Not Available bupropion HCl 150 mg tablet,12 hr sustained -release( smoking deterrent ) START WITH 150MG D FOR 5 DAYS THEN TK 1 T PO BID 07/20 completed Not Available Not Available Not Available Xiidra 5 % eye drops in a dropperet te INSTILL 1 DROP IN BOTH EYES TWICE DAILY 07/20 completed Not Available Not Available Not Available ID NOW COVID-19 Test Kit TEST DIRECTED TODAY 07/20 completed Not Available Not Available Not Available Afluria Qd 2019- (36 mos up)(PF)60 mcg (15 mcg x4)/0.5 mL IM syringe ADM 0.5ML IM UTD 07/20 completed Not Available Not Available Not Available Paxlovid 300 mg (150 mg x 2)-100 mg tablets in a dose pack TK 2 NIRMATRE LVIR TS AND 1 RITONAVI R T TOGETHER PO BID FOR 5 DAYS BID FOR 5 DAYS 07/20 completed Not Available Not Available Not Available Vitals Date Recorded Body height Body mass index (BMI) Body weight Provider Name and Address Organization Details Last Updated DateTime 08/19/2023 162.56 cm 24 kg/m2 48009.93 g Edna Brown Neena [facility] [employer] [facility] 08/19/2023 08:53:50 Date Recorded Body height Body mass index (BMI) Body weight Body temperature Heart rate Oxygen saturation Oxygen saturation in Arterial blood by Pulse oximetry Systolic And Diastolic Provider Name and Address Organization Details Last Updated DateTime 3 162.56 cm 24 kg/m2 18896.9 3 g 96.6 [degF] 89 /min 96 % 96 % 124/70 mm[Hg] Emmy Tubbs RN [facility] [employer] [facility] 3 15:38:38 Date Recorded Body height Body mass index (BMI) Body weight Body temperature Heart rate Oxygen saturation Oxygen saturation in Arterial blood by Pulse oximetry Systolic And Diastolic Provider Name and Address Organization Details Last Updated DateTime 4 162.56 cm 25.1 kg/m2 80131.4 9 g 97.4 [degF] 90 /min 93 % 93 % 118/80 mm[Hg] Josafat Molina RN [facility] [employer] 4 15:56:24 Date Recorded Body height Body mass index (BMI) Body weight Provider Name and Address Organization Details Last Updated DateTime 07/20/2023 162.56 cm 24 kg/m2 99679.93 g Edna Brown Neena [place] [employer] [facility] [employer] [facility] 07/20/2023 11:09:07 Date Recorded Body height Body mass index (BMI) Body weight Provider Name and Address Organization Details Last Updated DateTime 08/05/2023 162.56 cm 24.7 kg/m2 40414.3 g Sophie Ren [place] [employer] [facility] 08/05/2023 09:29:42 Social History Question Answer Notes LastModified by Organizat ion Details LastModified Time Tobacco Smoking Status Current Every Day Smoker Not Available [employer] 10/13/2022 12:52:10 Do You Have An Advance Directive? No [id number] Information not available 10/13/2022 What Is Your Level Of Caffeine Consumption? Heavy [id number] Information not available 10/13/2022 How Much Tobacco Do You Chew? None [id number] Information not available 10/13/2022 In The 14 Days Before Symptom Onset, Have You Had Close Contact With A Laboratory-confirm ed COVID-19 While That Case Was Ill? No [id number] Information not available 10/13/2022 In The 14 Days Before Symptom Onset, Have You Had Close Contact With A Person Who Is Under Investigation For COVID-19 While That Person Was Ill? No [id number] Information not available 10/13/2022 What Type Of Diet Are You Following? REGULAR [id number] Information not available 10/13/2022 Which Illicit Or Recreational Drugs Have You Used? None [id number] Information not available 10/13/2022 What Was The Date Of Your Most Recent Tobacco Screening? 07/20/2023 [email or web address] Information not available 07/20/2023 Have You Ever Been Counseled For Unhealthy Alcohol Use? No [id number] Information not available 10/13/2022 At What Age Did You Start Smoking Tobacco? 15 [id number] Information not available 10/13/2022 How Much Tobacco Do You Smoke? 1 PPD [id number] Information not available 10/13/2022 Do You Use Sunscreen Routinely? Yes [id number] Information not available 10/13/2022 Has Tobacco Cessation Counseling Been Provided? No [id number] Information not available 10/13/2022 How Many Years Have You Smoked Tobacco? 46 [id number] Information not available 10/13/2022 Do You Have Any Dietary Restrictions? No [id number] Information not available 10/13/2022 Sex: Unknown Functional Status Question Answer Note LastModified by Organizat ion Details LastModified Time Do you or have you ever used any other forms of tobacco or nicotine? No [id number] Information not available 10/13/2022 What is your level of alcohol consumption? Occasional [id number] Information not available 10/13/2022 Do you or have you ever used smokeless tobacco? Never used smokeless tobacco [id number] Information not available 10/13/2022 What is your occupation? [employer] [id number] Information not available 10/13/2022 Do you or have you ever used e-cigarettes or vape? Never used electronic cigarettes [id number] Information not available 10/13/2022 What is your exercise level? Occasional [id number] Information not available 10/13/2022 Mental Status None recorded. Family History Relationship Description Onset Age of this Age Resolved Age Notes LastModified by Organization Details LastModified Time Mother Family history of malignant neoplasm [id number] Not available 10/13/2022 12:52:25 Maternal Grandmother Family history of malignant neoplasm [id number] Not available 10/13/2022 12:52:25 Maternal Grandfather Family history of malignant neoplasm [id number] Not available 10/13/2022 12:52:25 Paternal Grandmother Family history of malignant neoplasm [id number] Not available 10/13/2022 12:52:25 Father Heart disease [id number] Not available 10/13/2022 12:52:25 Medical History Condition Response CHEST XRAY N KIDNEY STONES N CARPAL TUNNEL SYNDROME N MRSA N HISTORY OF DRUG ABUSE N COPD N RADIATION / CHEMOTHERAPY N SPORTS INJURY N BLOOD DISEASES N SURGERY N MUMPS N BOWEL PROBLEMS N FAILED BACK SYNDROME N STROKE/TIA N THYROID DISEASE N ULCERS N OTHER MODALITIES N CERVICALGIA N TB SKIN TEST N MYOCARDIAL INFARCTION N OBESITY N PARAPELGIA N URINARY/BLADDER/KIDNEY PROBLEMS N Increased Urination N CORONARY ARTERY DISEASE (CAD) N INPATIENT PSYCH CARE N Do you have Advance directive? N MENIERE'S DISEASE N ADDICTION CONCERNS N CAROTID STENOSIS N ENDOMETRIOSIS N Impotence N PARATHYROID DISEASE N PERIPHERAL VASCULAR DISEASE N MUSCLE,JOINT OR BONE PROBLEMS N DVT N STOMACH ULCERS N GASTROINTESTINAL BLEEDING N BLOOD CLOTS N Difficulty Urinating N PAST HISTORY OF VEHICULAR ACCIDENT N ASTHMA N USE OF NSAIDS N ARTERIAL INSUFFICIENCY N CHF N GI PROBLEMS N Low Testosterone N VISION/EYE PROBLEMS N MALE HYPOGONADISM N PERSONALITY DISORDER N ELBOW PAIN N TOURETTE'S N ANXIETY DISORDER N BLADDER/KIDNEY N CHRONIC EAR INFECTIONS N BIPOLAR DISORDER N CONDUCT DISORDER N OSTEOARTHRITIS N TUBERCULOSIS N DIVERTICULITIS N SLEEP APNEA N ALLERGIES/HAYFEVER Y HEART ARRHYTHMIA N PROSTATE N INSOMNIA N PAST MEDICATION HISTORY N EYE PROBLEMS N SCHIZOAFFECTIVE N EDEMA N HYPOTHYROIDISM N CONSTIPATION N CAROTID BLOCKAGE N MOOD DISORDER N BACK / NECK PROBLEMS N MIGRAINES N BREAST PROBLEMS N POLYCYSTIC OVARIES N FIBROMYALGIA N OSTEOPOROSIS N Do you have a healthcare POA? N PERIPHERAL NEUROPATHY N APPENDICITIS N VON WILLIBRAND'S DISEASE N SEASONAL ALLERGIES N HEARTBURN / REFLUX N PLEURISY N ADD/ADHD N Bronchoscopy N AUTISM SPECTRUM DISORDER (ASD) N SLEEP DISORDER N RETINOPATHY N HEADACHES/MIGRAINES N SLEEP STUDY N VASCULAR DISEASE N Blood Disorder N HIP PAIN N HEART DISEASE/HEART PROBLEMS N DEVELOPMENTAL OR BEHAVIORAL DISORDERS N CLAUDICATION N MULTIPLE SCLEROSIS N PULMONARY FUNCTION TEST N ANESTHESIA COMPLICATIONS N ATRIAL FIBRILLATION N Gall Stones N PULMONARY EMBOLISM N AUTOIMMUNE DISEASE N NERVE DISEASE N CYSTITIS N BLINDNESS N RHEUMATIC FEVER N BLADDER PROBLEMS N Enlarged Prostate N OTHER # 1 N POLIO N LUNG DISEASE/DISORDER N Other # 2 N ANKLE PAIN N EAR OR HEARING PROBLEMS N PAST SPINAL SURGERY N SCHIZOPHRENIA N SHOULDER PAIN N FEMALE PROBLEMS / INFECTIONS N DEPRESSION (INCLUDING POST ) N CHEST CT N KNEE PAIN N RENAL INSUFFICIENCY N BENIGN PROSTATIC HYPERPLASIA N MEASLES N HYPOTENSION N GERD/NAUSEA N EXCESSIVE PERSPIRATION N ANEURYSM N USE OF BLOOD THINNERS N SKIN PROBLEMS N EMPHYSEMA N SHORTNESS OF BREATH N GASTROINTESTINAL DISORDER N PTSD N Do you have a living will? N CATARACTS N CONCUSSION OR SPINAL TRAUMA N ERECTILE DYSFUNCTION N VARICOSITIES N NEUROPATHY N INFERTILITY N AIDS/HIV N FRACTURES N CHEMOTHERAPY / RADIATION N LIVER DISEASE N HYPERTENSION N Deficiency N Metal allergy N BLOOD TRANSFUSION N ANEMIA/BLOOD DISORDER N BRONCHITIS N GLAUCOMA N FOOT PROBLEM N HEART VALVE DISORDERS N CHICKENPOX N SOFT TISSUE INJURY N BACK INJECTIONS N INFECTIOUS DISEASE N ESRD N PAST INTERVENTIONAL PAIN MANAGEMENT HIST ORY N RHEUMATOID ARTHRITIS N HIGH CHOLESTEROL / HYPERLIPIDEMIA N HYPERTHYROIDISM N UTI N PVD N EATING DISORDER N NEUROLOGICAL PROBLEMS N CHRONIC PAIN SYNDROME N HAVE YOU BEEN HOSPITALIZED OR SEEN IN [facility] IN THE PAST YEAR ? N ATHEROSCLEROSIS N BURSITIS N HERNIATED DISC N DIALYSIS N ECZEMA N HISTORY WITH COMPLICATIONS WITH ANESTHES IA ? N PSYCHOSIS N ARTHRITIS N RESPIRATORY PROBLEMS N PAST HISTORY OF FALL N NO SIGNIFICANT PAST MEDICAL HISTORY N DIABETES, TYPE N BAD TEETH N ENT N POST LAMINECTOMY SYNDROME N HEPATITIS / LIVER DISEASE N PULMONARY DISEASE N GOUT N ALZHEIMER'S DISEASE N PAIN N Brain Problems N FATIGUE N HERPES N DEMENTIA N SEIZURES/EPILEPSY N PACEMAKER N DIZZINESS N HEAD TRAUMA OR INJURY N KIDNEY DISEASE N SCARLET FEVER N MENTAL DISORDER/ILLNESS N NEUROPSYCHOLOGICAL N CANCER: SPECIFY N CARDIAC ARRHYTHMIA N PNEUMONIA N DEAF/HEARING IMPAIRED N Gynecological History Statement/Question Response Abnormal Pap N Date of Last Mammogram Date of Last Colonoscopy Most Recent Bone Density Date of LMP Dislike of Light during Menstrual Headac he N Date of Last Pap 10/29/2020 Age at Menarche 12 Breast Problems none Discharge none Obstetrics History GPAL:G 4 P 4 0 0 4 Type Value Full Term 4 Living 4 Total 4 Immunizations Vaccine Type Date Status Note Provider Nam e and Address Organization Details Recorded Time COVID-19, mRNA, LNP-S, PF, 30 mcg/0.3 mL dose 1 completed Not Available [facility] 10/13/2022 12:58:37 COVID-19 vaccine, vector-nr, rS-Ad26, PF, 0.5 mL 1 completed Not Available [facility] 10/13/2022 12:58:37 influenza, intradermal, quadrivalent, preservative free 0 completed Not Available [facility] 10/13/2022 12:58:37 Influenza, split virus, quadrivalent, PF 1 completed Not Available [facility] 10/13/2022 12:58:37 Influenza, split virus, trivalent, PF 4 completed Josafat Molina RN [facility], [place] - [facility] [employer] [facility] 06/13/2024 16:29:45 Past Encounters Encounter ID Performer Location Encounter Start Date Encounter Closed Date Diagnosis/Indication Diagnosis SNOMED-CT Code Diagnosis ICD10 Code Diagnosis Note [id number] SUNI Hollins [facility] Primary [facility] [place] [address] [place] [address] 02/04/2021 00:00:00 02/04/2021 18:03:02 [id number] Eliza Garcia MD [facility] Primary [facility] [place] [address] [place] [address] 08/06/2021 00:00:00 08/06/2021 13:16:06 [id number] SUNI Hollins [facility] Primary [place] [address] [facility] [address] [place] [address] 02/09/2022 00:00:00 02/09/2022 20:13:50 [id number] Eliza Garcia MD [facility] Primary [facility] [place] [address] [facility] [address] [place] [address] 08/20/2022 00:00:00 08/20/2022 14:08:15 [id number] SUNI Hollins [facility] Primary [place] [address] [facility] [address] [place] [address] 03/11/2023 15:28:15 03/11/2023 17:52:03 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 Liver cyst 92171272 K76. [address] abd/pel (01/07/23)W ill check liver panel. If normal, will repeat imaging in 6 months. If abnormal, will check u/s and refer to hepatology . [id number] Bear Lainez MD [facility] [place] [address] [place] [address] 07/20/2023 10:46:31 07/20/2023 12:24:13 Pain in right foot [id number] M79.904 [id number] Bear Lainez MD [facility] [place] [address] [place] [address] 08/05/2023 09:25:31 08/05/2023 09:55:16 Pain in right foot [id number] 43485 M79.204 [id number] Bear Lainez MD [facility] [place] [address] [place] [address] 08/19/2023 08:48:32 08/19/2023 09:08:43 Pain in right foot [id number] 13121 M79.180 [id number] CHELE Day [facility] Primary [place] [address] [facility] [address] [place] [address] 06/13/2024 15:52:33 06/13/2024 16:19:45 Adult health examination [id number] Z00.00 Discussed medication compliance and routine follow up.Discuss ed healthy diet and routine exercise.Gama wilkinsoniewed vaccine records and made recommenda tions as needed.Enc ouraged annual eye and dental exams, as well as twice yearly dental cleanings. Administra tion of influenza vaccine [id number] Z23 Candidiasis of vagina 72 494578 B37.31 Overweight 355048195 E66 .3 Discussed healthy diet and routine exercise. Health Concerns Section Related Observation LastModified by Organization Detai ls LastModified Time None Recorded Concern Status LastModified by Organization Details LastModified Time None Recorded Advance Directives Directive N: Payers Insurance Date Sequence Insurance Name Policy Number Policy Stiles Covered Member ID Stiles Member ID Guarantor Name 07/26/2023 1 [facility]: [employer] 104 Ana Kessler [id number] Ana Kessler 06/11/2024 1 [place] 104 Ana Kessler [id number] Ana Kessler Notes Date Note Type Note Provider Name and Address Organization Details Recorded Time 03/11/2023 text/html 1. Pt in office for f/u on CT scan from December. Pt states she was told there were some cysts on her liver that need to be checked out. Pt denies any abd pain or concerns otherwise. SUNI Hollins [address], [facility] [address], [place], [address], amBX 03/11/2023 17:35:54 06/13/2024 text/html Patient is a 64 year old female that presents to the office for annual wellness. Patient reports she is doing well overall, denies chest pain and shortness of breath, nausea vomiting and diarrhea. Patient gets labs drawn yearly for prescription clerk. Patient is scheduled to see prescription clerk later this year. Patient was recently at for sinus infection was given Doxycycline, requesting prescription for Diflucan as she typically gets a yeast infection with any antibiotic therapy. bgno-fqxxoxeMUC-dd es GYNMammogram-UTD (Specialty Sales Consultant)Colonoscopy-b mariann it is up to dateFlu-awareCovid -UTDTdap-awareShin gles-declinesPneum onia-aware SUNI Day-C [address], [place], [address], amBX 06/13/2024 16:20:05 OBGyn Episode No OBEpisode recorded.
--- OUTSIDE RECORDS SUMMARY | 2025-02-21 08:33 | XMS_ITS | Encounter Summary ---
Author Organization [facility] Facility Care Team Providers Care Sausage Mixer Name Role Phone Cullen Whelan NP Primary Care Provider [phone] Lou Garcia MD Primary Care Provider + Encounter Details Date Type Department Care Team (Latest Contact Info) Description 04/20/2018 Orders Only [facility] CLINCONV ProviderStacey MD [address] [place] [address] Social History Tobacco Use Types Packs/Day Years Used Date Smoking Tobacco: Never Assessed Comments Unknown Sex and Gender Information Value Date Recorded Sex Assigned at Not on file Legal Sex Female 12:41 AM MICA PARTS SPRAYER Gender Identity Not on file Sexual Orientation Not on file documented as of this encounter Plan of Treatment Not on file documented as of this encounter Procedures Procedure Name Priority Date/Time Associated Diagnosis Comments CARDIOLOGY REPORT 04/24/2018 12: 00 AM CDT documented in this encounter Results * CARDIOLOGY REPORT (04/24/2018 12:00 AM CDT) Anatomical Region Laterality Modality Other Narrative 04/24/2018 12:00 AM CDT Ordered by an unspecified provider. us Historical Provider [facility] LIDIA LOPEZ Final Result documented in this encounter Visit Diagnoses Not on filedocumented in this encounter Additional Health Concerns Infection Onset Date Last Indicated Resolved Time COVID: Suspected 04/13/2023 04/13/2023 04/13/2023 7:44 PM CDT COVID: Suspected 08/14/2023 08/14/2023 08/14/2023 1:02 PM MICA PARTS SPRAYER Influenza, adult 08/14/2023 08/14/2023 08/21/2023 3:05 AM MICA PARTS SPRAYER documented as of this encounter Care Teams Sausage Mixer Relationship Specialty Start Date End Date Cullen Whelan NP PCP - General Internal Medicine 04/13/23 06/08/24 Lou Garcia MD [address] [place] [address] PCP - General Family Medicine 06/09/24 documented as of this encounter
--- OUTSIDE RECORDS SUMMARY | 2025-02-21 08:33 | XMS_ITS | Encounter Summary ---
Author Organization [facility] Facility Care Team Providers Care Federal Judge Name Role Phone Cullen Whelan NP Primary Care Provider [phone] Lou Garcia MD Primary Care Provider + Encounter Details Date Type Department Care Team (Latest Contact Info) Description 07/31/2018 Orders Only [facility] CLINCONV Provider, MD Stacey [address] [place] [address] Social History Tobacco Use Types Packs/Day Years Used Date Smoking Tobacco: Never Assessed Comments Unknown Sex and Gender Information Value Date Recorded Sex Assigned at Not on file Legal Sex Female 12:41 AM SPECIAL FORCES SPECIALIST Gender Identity Not on file Sexual Orientation Not on file documented as of this encounter Plan of Treatment Not on file documented as of this encounter Procedures Procedure Name Priority Date/Time Associated Diagnosis Comments SCAN - PATHOLOGY 08/02/2018 12:0 0 AM SPECIAL FORCES SPECIALIST documented in this encounter Results * SCAN - PATHOLOGY (08/02/2018 12:00 AM SPECIAL FORCES SPECIALIST) Narrative 08/02/2018 12:00 AM SPECIAL FORCES SPECIALIST Ordered by an unspecified provider. Historical Provider Final Res ult documented in this encounter Visit Diagnoses Not on filedocumented in this encounter Additional Health Concerns Infection Onset Date Last Indicated Resolved Time COVID: Suspected 04/13/2023 04/13/2023 04/13/2023 7:44 PM CDT COVID: Suspected 08/14/2023 08/14/2023 08/14/2023 1:02 PM SPECIAL FORCES SPECIALIST Influenza, adult 08/14/2023 08/14/2023 08/21/2023 3:05 AM SPECIAL FORCES SPECIALIST documented as of this encounter Care Teams Federal Judge Relationship Specialty Start Date End Date Cullen Whelan, TAMANNA PCP - General Internal Medicine 04/13/23 06/08/24 Lou Garcia MD [address] [place] [address] DR [address] [place] [address] PCP - General Family Medicine 06/09/24 documented as of this encounter
--- OUTSIDE RECORDS SUMMARY | 2025-02-21 08:33 | XMS_ITS | Continuity of Care Document ---
Author Organization [facility] Address [address] [place] [address] Phone Care Team Providers Care Production Clerk Name Role Phone Amaro OD, Brodie Unavailable Unavailable Advance Directives Directive Yes / No Effective Date File Name No Information Encounters Encounter Description Practice Location Reason(s) For Visit Diagnoses Date Provider Providers Copied on Encounter [facility], [address], [place], [place], [id number], [place] tel:[phone] [facility] [place] No Information Dec-2 8-200 5 Amaro OD Brodie. [address] [facility] [address] [facility] [place] , [address], [place], [address], [place]. tel:[phone] Family History Family Member Type Diagnosis Age At Onset No Information Payers Payer name Insurance type Covered constitution party ID Authoriza tion(s) No Information Social History Type Description Quantity Date Captured Comments Sex Female Smoking Status No Information Chief Complaint And Reason For Visit No Information Reason For Referral Reason For Referral No Information History Of Present Illness Encounter Date Complaint History Of Prese nt Illness No Information Functional Status Date Functional Assessmen t No Information Instructions Date Instruction Additional Infor mation No Information Assessments Type Assessment Date No Information Patient Care Teams Name Effective Dates (start - stop) Status Members No Information
--- OUTSIDE RECORDS SUMMARY | 2025-02-21 08:33 | XMS_ITS | Clinical Summary ---
Author Organization [facility] Address [address] [address] Phone Care Team Providers Care Outer Diameter Grinder Tool Name Role Phone Elisha Cohen Primary Care Provider [phone] Dianna Farooq MD Unavailable [phone] Allergies No known active allergies Medications No known medications Family History Medical History Relation Name Comments Cancer Maternal Grandfather jaw Cancer Maternal Grandmother esophge al Cancer Mother lung Heart Attack Mother Cancer Paternal Grandmother ovarian Relation Name Status Comments Father Alive Maternal Grandfather Maternal Grandmother Mother Paternal Grandmother Social History Tobacco Use Types Packs/Day Years Used Date Smoking Tobacco: Some Days Cigarettes Smokeless Tobacco: Never Alcohol Use Standard Drinks/Week Comments Yes 10 (1 standard drink = 0.6 oz pu re alcohol) Comments Unknown Sex and Gender Information Value Date Recorded Sex Assigned at Not on file Legal Sex Female 10:45 PM CDT Gender Identity Not on file Sexual Orientation Not on file Last Filed Vital Signs Vital Sign Reading Time Taken Comments Blood Pressure - - Pulse - - Temperature - - Respiratory Rate - - Oxygen Saturation - - Inhaled Oxygen Concentration - - Weight 65.8 kg (145 lb) 05/09/2018 1:00 PM CDT Height 162.6 cm (5' 4) 05/09/2018 1:00 PM CDT Body Mass Index 24.89 05/09/2018 1:00 PM CDT Plan of Treatment Health Maintenance Due Date Last Done Comments Hepatitis C Virus (HCV) Screening 1960 TdaP Immunization 1960 Pap Smear 1983 Cervical Cancer Screening (CCS) 02/04/1992 HPV/Cotest 02/04/1992 Cologuard 02/04/2012 Immunochemical Fecal Occult Blood 02/04/2012 Mammogram 02/04/2012 Pneumococcal Immunization (5 0+ years) (1 of 1 - PCV) 02/04/2012 Zoster Immunization (1 of 2) 02/04/2012 Colonoscopy 07/31/2023 07/31/2018 Colorectal Cancer Screening 07/31/2023 Influenza Immunization (#1) 2024 SARS-COV-2 Immunization (1 - 2023- season) 2024 Respiratory Syncytial Virus (RSV) Immunization (Adult) (1 - 1-dose 75+ series) 2037 Hepatitis B Immunization Aged Out No longer eligible based on patient's age to complete this topic Meningococcal Immunization (ACWY) Aged Out No longer eligible based on patient's age to complete this topic Pneumococcal Immunization Combined Aged Out No longer eligible based on patient's age to complete this topic Rotavirus Immunization Aged Out No lo nger eligible based on patient's age to complete this topic Procedures Procedure Name Priority Date/Time Associated Diagnosis Comments COLONOSCOPY Routine 07/31/2018 from Last 3 Months or Most Recently Relevant to Health Maintenance Results * COLONOSCOPY (07/31/2018) Brodie Conway DO PROCEDURE/MINOR SURGICAL ORDERA BLES Final Result from Last 3 Months or Most Recently Relevant to Health Maintenance [place] [place] [id number] Care Teams Outer Diameter Grinder Tool Relationship Specialty Start Date End Date Elisha Cohen PA [address] [place] [address] PCP - General Urology 10/11/17 Dianna Farooq MD [address] [address] Obstetrics & Gynecology 10/11/17
== END 2025-02-21 08:28 | disposition home or self-care (01) ==
LOC: ANHIMG 08:29
PROVIDERS: PCP Nurse Practitioner Family; Visit Provider Nurse Practitioner
DX: Z12.31 Encounter for screening mammogram for malignant neoplasm of breast (principal)
CPT/HCPCS: 77063; 77067

== ENCOUNTER 2025-07-05 00:20 | Day surgery (SDC) | payer BC, SELFPAY ==
[2025-06-23 12:48] VITALS: BMI 24.5
--- OUTSIDE RECORDS SUMMARY | 2025-07-05 00:23 | XMS_ITS | Clinical Summary ---
Author Organization [facility] Address [address] [place] [address] Phone Care Team Providers Care Dehairer Name Role Phone Lou Garcia MD Primary [...] on file Legal Sex Female 12:41 AM VB DEVELOPER Gender Identity Not on file Sexual Orientation Not on file Last Filed Vital Signs Vital Sign Reading Time Taken Comments Blood Pressure 125/82 07/31/2024 6:12 PM VB DEVELOPER Pulse 74 07/31/2024 6:12 PM VB DEVELOPER Temperature 36.8 C (98.2 F) 07/31/2024 6:12 PM VB DEVELOPER Respiratory Rate 18 07/31/2024 6:12 PM VB DEVELOPER Oxygen Saturation 93% 07/31/2024 6:12 PM VB DEVELOPER Inhaled Oxygen Concentration - - Weight 67.7 kg (149 lb 4.8 oz) 07/31/2024 6:12 P M VB DEVELOPER Height 162.6 cm (5' 4.02) 07/31/2024 6:12 PM CS T Body Mass Index 25.61 07/31/2024 6:12 PM VB DEVELOPER Plan of Treatment Health Maintenance Due Date Last Done Comments Cervical Cancer Screening 1962 Colon Cancer Screening-Colonoscopy 1962 Depression Screening 1962 Hepatitis C Screening 1962 Hepatitis B Screening 02/04/1980 Regular Well Visit/Exam 18-64 02/04/1980 Zoster Vaccine (1 of 2) 02/04/2012 DTaP/Tdap/Td Vaccine (2 - Td or Tdap) 03/22/2023 03/22/2013 Breast Cancer Screening-Mammogram 07/30/2023 07/30/2022 Covid-19 Vaccine (3 - season) 2025 06/14/2021, 10/21/2020 Influenza Vaccine (#1) 2025 , 08/10/2021, 05/30/2020, Additional history exists Pneumococcal vaccine <65 Aged Out No longer eligible based on patient's age to complete this topic Insurance [facility] Care Teams Dehairer Relationship Specialty Start Date End Date Lou Garcia MD [address] [place] [id number] PCP - General Family Medicine 06/09/24
--- OUTSIDE RECORDS SUMMARY | 2025-07-05 00:23 | XMS_ITS | Data Portability ---
Author Organization [place] - [facility], Main Office Address [address] [place] [address] Care Team Providers Care Substation Operator Transforming Name Role Phone ELIZA GARCIA Primary Care Provider ELIZA GARCIA Referring Provider Assessment Encounter Date Assessment Date Assessment LastModified [...] of the right foot show a nondisplaced Cat fracture to the base of the 5th [...] for follow up of right 5th metatarsal cat fracture. She was placed in a boot and told to stay nonweightbearing. She states she has been ambulating well with a knee scooter. Rates her pain a 4/10. Imaging: X-rays reviewed of the right foot show a healing nondisplaced Cat fracture to the base of the 5th [...] for follow up of right 5th metatarsal cat fracture. She was placed in a boot and told to stay nonweightbearing. She states she has been ambulating well with a knee scooter. Rates her pain a 0/10. Imaging: X-rays reviewed of the right foot show a healing nondisplaced Cat fracture to the base of the 5th [...] Modified Time Details Appointments None recorded. Lab None recorded. Referral None recorded. Procedures None recorded. Surgeries None recorded. Imaging XR, foot, 3 or more view 2023 024 [email or web address] [facility] Haim Schafer [address] [address], [place], [address], 4 16:29:36 XR, foot 2022 023 [email or web address] [facility] [place], [address], [address], 3 13:49:25 XR, foot, 3 or more view 2022 023 [email or web address] [facility] [place], [address], [address], 3 21:42:26 Medication Orders fluconazole 150 mg tablet 2024 025 [facility][id number], [address], [place], [place], [id number], 5 16:07:31 Zithromax Z-Miguel Ángel 250 mg tablet 2024 025 [facility] #91544, [address], [place], [place], [id number], 5 16:07:32 prednisone 20 mg tablet 2024 025 [facility] #[id number], [address], [place], [place], [id number], 5 16:07:29 Diflucan 150 mg tablet 2023 024 [email or web address] [facility] #[id number], [address], [place], [place], [id number], 5 15:52:20 Patient TargetsNo targets recorded. Patient InstructionsNo instructions recorded. Reason for Referral None Reported. Results Created Date Observation Date Name Description Value Unit Range Abnormal Flag Note LastModifiedBy Organization Detail LastModifiedTime 07/15/20 23 07/12/2023 XR, foot, 3 or more view No observ ation record ed. [email or web address] Not Available 08/2022 14:32:31 07/20/20 23 XR, foot, 3 or more view No observ ation record ed. [email or web address] [facility] [place] [address], [place], [address], 07/20/2023 21:42:25 08/05/20 23 XR, foot No observ ation record ed. [email or web address] [facility] [place] [address], [place], [address], 08/05/2023 13:46:01 08/19/19 24 XR, foot, 3 or more view No observ ation record ed. [email or web address] [facility] [place] [address], [place], [address], 08/19/2023 09:28:31 12/23/19 24 12/23/2023 MAMMO , scree eliane, digit al, bilat eral No observ ation record ed. [email or web address] [facility] [address], [place], [address], 12/25/2023 17:03:11 08/03/20 24 08/03/2024 imagi ng inter preta tion No observ ation record ed. [email or web address] [facility] [address], [place], [address], 05/27/2025 12:39:18 02/22/20 25 02/21/2025 MAMMO , scree eliane, digit al, bilat eral No observ ation record ed. [email or web address] [facility] [address] [facility] [address], [place], [address], 02/22/2025 07:48:15 Result Notes None recorded. 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 885996643 Active 2022 SUNI Hollins [address], [place], [address] , [employer] [facility] [employer] [facility] 3 15:46:12 Liver cyst 78119322 Active 2022 SUNI Hollins [address], [place], [address] , [employer] [facility] [email or web address] [facility] 3 15:48:02 Pain in throat 885947169 Active 2022 Eliza Garcia MD [address], [address], [place], [address] , [employer] [facility] [email or web address] [facility] 3 17:35:48 Pain in right foot 1230829605094 07 Active 2022 Edna Brown, Neena [facility], [employer] [facility] [email or web address] [facility] 3 11:14:46 Candidiasi s of skin 92363286 Active 2023 CHELE Day [address], [address], [place], [address] , [employer] [facility] [email or web address] [facility] 4 16:13:22 Candidiasi s of vagina 72099356 Active 2023 CHELE Day [address], [place], [address] , [employer] [facility] [email or web address] [facility] 5 16:06:16 Overweight 573834038 Active 2023 CHELE Day [address], [place], [address] , [employer] [facility] [email or web address] [facility] 4 16:19:36 Bacterial sinusitis 372957226 Active 2024 CHELE Day [address], [place], [address] , [facility] [employer] 5 16:05:12 Problem Notes None recorded. Procedures Surgical History Date Name Laterality Status Provider Name and Address Organization Details Recorded Time Cholecystectomy completed Not Available [facility] 10/13/2022 12:52:25 ligation of fallopian tube completed Not Available [facility] 10/13/2022 12:52:25 Unlisted procedure shoulder completed Not Available [facility] 10/13/2022 12:52:25 Imaging Results None recorded. Procedure Notes None recorded. Medical Equipment None Reported. Allergies Allergen ID Allergen Name Allergen Category Reaction Reaction Severity Criticality Documentation Date Start Date Code Code System Note Provider Name and Address Organization Details Recorded Time 44814 amoxicill in medicatio n itching moderate Not available 10/13/2022 723 RxNorm Not Available [facility] 3 12:58:44 73332 codeine medicatio n Not available Not available Not available 07/20/2023 2670 RxNorm TALYA Martinez, [facility] [employer] 3 11:09:35 Medications Name Sig Start Date [...] completed Not Available Not Available Not Available Estring 2 mg (7.5 mcg/24 hour) vaginal ring INSERT 1 RING VAGINALL Y EVERY 90 DAYS active Not Available Not Available No t Available doxycycli ne hyclate 100 mg capsule 04/25 completed Not Available Not Available Not Available clindamyc in HCl 300 mg capsule TAKE 1 CAPSULE BY MOUTH EVERY 6 HOURS 04/25 completed Not Available Not Available Not Available azithromy ivonne 250 mg tablet TAKE 2 TABLETS (500 MG) BY ORAL ROUTE ONCE DAILY FOR 1 DAY THEN 1 TABLET (250 MG) BY ORAL ROUTE ONCE DAILY FOR 4 DAYS active Not Available Not Available No t Available ibuprofen 800 mg tablet TAKE ONE TABLET EVERY EIGHT HOURS NEEDED FOR PAIN active Not Available Not Available No t Available Lidocaine Viscous 2 % mucosal solution [...] Available prednison e 20 mg tablet TAKE 1 TABLET BY MOUTH EVERY DAY FOR 5 DAYS active Not Available Not Available No t Available prednison e 5 mg tablet 06/13 completed Not Available Not Available Not Available terconazo le 0.8 % vaginal cream INSERT 1 APPLICAT ORFUL VAGINALL Y AT BEDTIME FOR 3 DAYS 07/20 completed Not Available Not Available Not Available clindamyc in HCl 150 mg capsule TAKE 2 CAPSULE BY MOUTH EVERY 6 HOURS UNTIL ALL GONE 04/25 completed Not Available Not Available Not Available [...] completed Not Available Not Available Not Available oxycodone -acetamin ophen 5 mg-325 mg tablet TAKE 1/2 TO 1 TABLET BY MOUTH EVERY 4 TO 6 HOURS NEEDED FOR PAIN 04/25 completed Not Available Not Available Not Available amoxicill in 875 mg tablet Take 1 tablet every 12 hours by oral route for 10 days. active Not Available Not Available No t Available benzonata te 100 mg capsule 06/13 completed Not Available Not Available Not [...] completed Not Available Not Available Not Available ibuprofen 400 mg tablet TAKE 1 TABLET BY MOUTH EVERY 4 HOURS NEEDED active Not Available Not Available No t Available diclofena c sodium 75 mg tablet,de [...] a dose pack FOLLOW PACKAGE DIRECTIO NS 04/25 completed Not Available Not Available Not Available albuterol sulfate HFA 90 mcg/actua tion aerosol inhaler INHALE 2 PUFFS BY MOUTH EVERY 6 HOURS NEEDED FOR WHEEZING OR SHORTNES S OF BREATH 06/13 completed Not Available Not Available Not Available oxybutyni n chloride 5 mg tablet 12/24 completed Not Available Not Available Not Available ondansetr on 4 mg disintegr ating tablet TAKE 1 TABLET BY MOUTH EVERY 6 HOURS NEEDED FOR NAUSEA active Not Available Not Available No t Available cefdinir 300 mg capsule 07/20 completed [...] completed Not Available Not Available Not Available ezetimibe 10 mg tablet TAKE 1 TABLET BY MOUTH DAILY active Not Available Not Available No t Available rosuvasta tin 5 mg tablet TAKE 1 TABLET BY MOUTH EVERY DAY 04/25 completed Not Available Not Available Not Available rosuvasta tin 20 mg tablet TAKE [...] completed Not Available Not Available Not Available chlorhexi dine gluconate 0.12 % mouthwash SWISH AND SPIT 10 ML THREE TIMES DAILY active Not Available Not Available No t Available estradiol 10 mcg vaginal tablet INSERT 1 TABLET VAGINALL Y 2 TIMES A WEEK AT BEDTIME active Not Available Not Available No t Available 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 Thyroid 30 mg tablet TAKE 1 TABLET BY MOUTH TWICE DAILY 06/13 completed Not Available Not Available Not Available 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 Thyroid 60 mg tablet TAKE 1 TABLET [...] height Body mass index (BMI) Body weight Pain severity - 0-10 verbal numeric rating [Score] - Reported Provider Name and Address Organization Details Last Updated DateTime 08/19/2023 162.56 cm 24 kg/m2 84725.93 g 1 Edna Brown [place] [employer] [facility] 08/19/2023 08:54:02 Date Recorded Body height Body mass index (BMI) Body weight Body temperature Heart rate Oxygen saturation Systolic And Diastolic Provider Name and Address Organization Details Last Updated DateTime 5 162.56 cm 25.7 kg/m2 45526.8 6 g 97.4 [degF] 68 /min 96 % 122/82 mm[Hg] J Luis Burch [place] [employer] [facility] 5 15:55:42 Date Recorded Body height Body mass index (BMI) Body weight Body temperature Heart rate Oxygen saturation Systolic And Diastolic Provider Name and Address Organization Details Last Updated DateTime 4 162.56 cm 25.1 kg/m2 76252.4 9 g 97.4 [degF] 90 /min 93 % 118/80 mm[Hg] Josafat Molina RN [facility] [employer] 15:56:24 Date Recorded Body height Body mass index (BMI) Body weight Pain severity - 0-10 verbal numeric rating [Score] - Reported Provider Name and Address Organization Details Last Updated DateTime 07/20/2023 162.56 cm 24 kg/m2 00171.93 g TALYA Casanova [facility] 07/20/2023 11:09:14 Date Recorded Body height Body mass index (BMI) Body weight Provider Name and Address Organization Details Last Updated DateTime 08/05/2023 162.56 cm 24.7 kg/m2 40531.3 g Sophie Mcclure [facility] 08/05/2023 09:29:42 Social History Question Answer Notes LastModified by Organizat ion Details LastModified Time Tobacco Smoking Status Current Every Day Smoker Not Available [facility] 10/13/2022 12:52:10 Do You Have An Advance Directive? No [id number] Information not available 10/13/2022 What Is Your Level Of Caffeine Consumption? Heavy MIGRATION.[id number] 026 Information not available 10/13/2022 How Much Tobacco Do You Chew? None [id number] 026 Information not available 10/13/2022 In The 14 Days Before Symptom Onset, Have You Had Close Contact With A Laboratory-confirm ed COVID-19 While That Case Was Ill? No [id number] 026 Information not available 10/13/2022 In The 14 Days Before Symptom Onset, Have You Had Close Contact With A Person Who Is Under Investigation For COVID-19 While That Person Was Ill? No [id number] 026 Information not available 10/13/2022 What Type Of Diet Are You Following? REGULAR MIGRATION.[id number] 026 Information not available 10/13/2022 Which Illicit Or Recreational Drugs Have You Used? None [id number].[id number] 026 Information not available 10/13/2022 What Was The Date Of Your Most Recent Tobacco Screening? 07/20/2023 [email or web address] Information not available 07/20/2023 Have You Ever Been Counseled For Unhealthy Alcohol Use? No [id number] 026 Information not available 10/13/2022 At What Age Did You Start Smoking Tobacco? 15 MIGRATION.[id number] 026 Information not available 10/13/2022 How Much Tobacco Do You Smoke? 1 PPD MIGRATION.[id number] 026 Information not available 10/13/2022 Do You Use Sunscreen Routinely? Yes MIGRATION.[id number] 026 Information not available 10/13/2022 Has Tobacco Cessation Counseling Been Provided? No MIGRATION.[id number] 026 Information not available 10/13/2022 How Many Years Have You Smoked Tobacco? 46 MIGRATION.5202833 026 Information not available 10/13/2022 Do You Have Any Dietary Restrictions? No MIGRATION.9555974 026 Information not available 10/13/2022 Sex: Unknown Functional Status Question Answer Note LastModified by Organizat ion Details LastModified Time Do you or have you ever used any other forms of tobacco or nicotine? No MIGRATION.[id number] 026 Information not available 10/13/2022 What is your level of alcohol consumption? Occasional MIGRATION.[id number] 026 Information not available 10/13/2022 Do you or have you ever used smokeless tobacco? Never used smokeless tobacco MIGRATION.4420183 026 Information not available 10/13/2022 What is your occupation? [employer] MIGRATION.1822539 026 Information not available 10/13/2022 Do you or have you ever used e-cigarettes or vape? Never used electronic cigarettes MIGRATION.0584292 026 Information not available 10/13/2022 What is your exercise level? Occasional MIGRATION.[id number] 026 Information not available 10/13/2022 Mental Status None recorded. Family History Relationship Description Onset Age of this Age Resolved Age Notes LastModified by Organization Details LastModified Time Mother Family history of malignant neoplasm [id number].[id number] Not available 10/13/2022 12:52:25 Maternal Grandmother Family history of malignant neoplasm MIGRATION.036 [id number] Not available 10/13/2022 12:52:25 Maternal Grandfather Family history of malignant neoplasm MIGRATION.841 [id number] Not available 10/13/2022 12:52:25 Paternal Grandmother Family history of malignant neoplasm MIGRATION.695 [id number] Not available 10/13/2022 12:52:25 Father Heart disease MIGRATION.708 [id number] Not available 10/13/2022 12:52:25 Medical History Condition Response CHEST XRAY N KIDNEY STONES N CARPAL TUNNEL SYNDROME N MRSA N HISTORY OF DRUG ABUSE N RADIATION / CHEMOTHERAPY N COPD N SPORTS INJURY N BLOOD DISEASES N SURGERY N MUMPS N BOWEL PROBLEMS N FAILED BACK SYNDROME N STROKE/TIA N THYROID DISEASE N ULCERS N OTHER MODALITIES N CERVICALGIA N TB SKIN TEST N MYOCARDIAL INFARCTION N PARAPELGIA N OBESITY N URINARY/BLADDER/KIDNEY PROBLEMS N Increased Urination N INPATIENT PSYCH CARE N CORONARY ARTERY DISEASE (CAD) N MENIERE'S DISEASE N Do you have Advance directive? N CAROTID STENOSIS N ADDICTION CONCERNS N Impotence N ENDOMETRIOSIS N PARATHYROID DISEASE N PERIPHERAL VASCULAR DISEASE N MUSCLE,JOINT OR BONE PROBLEMS N DVT N STOMACH ULCERS N GASTROINTESTINAL BLEEDING N BLOOD CLOTS N PAST HISTORY OF VEHICULAR ACCIDENT N Difficulty Urinating N ASTHMA N USE OF NSAIDS N ARTERIAL INSUFFICIENCY N GI PROBLEMS N CHF N Low Testosterone N VISION/EYE PROBLEMS N MALE HYPOGONADISM N PERSONALITY DISORDER N ELBOW PAIN N TOURETTE'S N BLADDER/KIDNEY N ANXIETY DISORDER N CHRONIC EAR INFECTIONS N BIPOLAR DISORDER N CONDUCT DISORDER N OSTEOARTHRITIS N TUBERCULOSIS N DIVERTICULITIS N SLEEP APNEA N ALLERGIES/HAYFEVER Y PROSTATE N HEART ARRHYTHMIA N INSOMNIA N PAST MEDICATION HISTORY N [...] N SLEEP STUDY N VASCULAR DISEASE N HIP PAIN N Blood Disorder N HEART DISEASE/HEART PROBLEMS N MULTIPLE SCLEROSIS N DEVELOPMENTAL OR BEHAVIORAL DISORDERS N CLAUDICATION N PULMONARY FUNCTION TEST N ANESTHESIA COMPLICATIONS N Gall Stones N ATRIAL FIBRILLATION N PULMONARY EMBOLISM N AUTOIMMUNE DISEASE N [...] HAVE YOU BEEN HOSPITALIZED OR SEEN IN [facility] ER IN THE PAST YEAR ? N ATHEROSCLEROSIS [...] GOUT N ALZHEIMER'S DISEASE N PAIN N FATIGUE N Brain Problems N HERPES N DEMENTIA N SEIZURES/EPILEPSY N PACEMAKER N DIZZINESS N HEAD TRAUMA OR INJURY N KIDNEY DISEASE N SCARLET FEVER N MENTAL DISORDER/ILLNESS N NEUROPSYCHOLOGICAL N CARDIAC ARRHYTHMIA N CANCER: SPECIFY N PNEUMONIA N DEAF/HEARING IMPAIRED N Gynecological [...] e and Address Organization Details Recorded Time Tdap 3 completed Not Available [facility] 04/25/2025 15:37:15 Influenza, split virus, quadrivalent, PF 6 completed Not Available [facility] 04/25/2025 15:37:15 COVID-19, mRNA, LNP-S, bivalent, PF, 30 mcg/0.3 mL dose 2 completed Not Available [facility] 04/25/2025 15:37:15 Influenza, MDCK, quadrivalent, PF 2 completed Not Available [facility] 04/25/2025 15:37:15 COVID-19, mRNA, LNP-S, PF, 30 mcg/0.3 mL dose 1 completed Not Available [facility] 10/13/2022 12:58:37 COVID-19 vaccine, vector-nr, rS-Ad26, PF, 0.5 mL 1 completed Not Available [facility] 10/13/2022 12:58:37 influenza, intradermal, quadrivalent, preservative free 0 completed Not Available [facility] 10/13/2022 12:58:37 Influenza, split virus, quadrivalent, PF 1 completed Not Available [facility] 10/13/2022 12:58:37 Influenza, split virus, trivalent, PF 4 completed Josafat Molina RN [facility], [facility] [employer] [facility] 06/13/2024 16:29:45 Past Encounters Encounter ID Performer Location Encounter Start Date Encounter Closed Date Diagnosis/Indication Diagnosis SNOMED-CT Code Diagnosis ICD10 Code Diagnosis IMO Codes Diagnosis Note [id number] SUNI Hollins [facility] [address] [place] [address] [address] [place] [address] 02/04/2021 00:00:00 02/04/2021 18:03:02 [id number] Eliza Garcia MD [facility] Primary [address] [place] [address] 08/06/2021 00:00:00 08/06/2021 13:16:06 [id number] SUNI Hollins [facility] [address] [place] [address] [address] [place] [address] 02/09/2022 00:00:00 02/09/2022 20:13:50 [id number] Eliza Garcia MD [facility] [address] [place] [address] [address] [place] [address] 08/20/2022 00:00:00 08/20/2022 14:08:15 [id number] SUNI Hollins [facility] [address] [place] [address] [address] [place] [address] 03/11/2023 15:28:15 03/11/2023 17:52:03 Congenital duplication of renal collecting system 914025581 Q63.[address] abd/pel (01/07/23)P t advised this is benign and does not require any interventi on. Liver cyst 46355010 K76. [address] abd/pel (01/07/23)W ill check liver panel. If normal, will repeat imaging in 6 months. If abnormal, will check u/s and refer to hepatology . [id number] Bear Lainez MD [facility] [place] [address] [place] [address] 07/20/2023 10:46:31 07/20/2023 12:24:13 Pain in right foot 4246878775 82964 M79.903 [id number] Bear Lainez MD [facility] [place] [address] [place] [address] 08/05/2023 09:25:31 08/05/2023 09:55:16 Pain in right foot 6304306070 89781 M79.669 [id number] Bear Lainez MD [facility] [place] [address] [place] [address] 08/19/2023 08:48:32 08/19/2023 09:08:43 Pain in right foot 0747077426 91288 M79.302 [id number] CHELE Day [facility] Primary Care [facility] [address] [facility] [place] [address] 06/13/2024 15:52:33 06/13/2024 16:19:45 Adult health examination 951172671 Z00.00 Discussed medication compliance and routine follow up.Discuss ed healthy diet and routine exercise.Gama rollinswed vaccine records and made recommenda tions as needed.Enc ouraged annual eye and dental exams, as well as twice yearly dental cleanings. Administra tion of influenza vaccine 60700644 Z23 Candidiasis of vagina 72 123713 B37.31 Overweight 434266340 E66 .3 Discussed healthy diet and routine exercise. [id number] CHELE Day [facility] [address] [place] [address] 04/25/2025 15:35:36 04/25/2025 16:07:25 Bacterial sinusitis 553913853 J32.9 B96.89 0316494 Candidiasis of vagina 72 184245 B37.31 [id number] Health Concerns Section Related Observation LastModified by Organization Detai ls LastModified Time None Recorded Concern Status LastModified by Organization Details LastModified Time None Recorded Advance Directives Directive N: Payers Insurance Date Sequence Insurance Name Policy Number Policy Stiles Covered Member ID Stiles Member ID Guarantor Name 07/26/2023 1 [facility] [employer] 104 Ana Josepham [id number] [place] 04/29/2025 1 [place] 104 Ana Kessler [id number] [facility] Notes Date Note Type Note Provider Name and Address Organization Details Recorded Time 06/13/2024 text/html ROS as noted in the HPI Patient is a 64 year old female that presents to the office for annual wellness. Patient reports she is doing well overall, denies chest pain and shortness of breath, nausea vomiting and diarrhea. Patient gets labs drawn yearly for plastics process hand. Patient is scheduled to see plastics process hand later this year. Patient was recently at for sinus infection was given Doxycycline, requesting prescription for Diflucan as she typically gets a yeast infection with any antibiotic therapy. ocly-sgvchquWMD-uu es GYNMammogram-UTD (Boarder Hand)Colonoscopy-b mariann it is up to dateFlu-awareCovid -UTDTdap-awareShin gles-declinesPneum onia-aware [facility] [address], [place], [address], [employer] 06/13/2024 16:20:05 04/25/2025 text/html ROS as noted in the HPI Patient is a 65 year old female that presents to the office for sinus infection for 4 weeks. Patient reports sinus pressure, runny nose, productive cough with brown sputum, sore throat initially. Patient denies ear pain, fevers, chest pain and shortness of breath. Patient denies known sick contacts. CHE[facility] Day [address], [place], [address], [employer] 04/29/2025 09:14:59 OBGyn Episode No OBEpisode recorded.
--- OUTSIDE RECORDS SUMMARY | 2025-07-05 00:23 | XMS_ITS | Continuity of Care Document ---
Author Organization [place] - [facility], [facility] Primary Care [place] Address [address] [facility] [address] [place] [address] Care Team Providers Care Account Manager Employee Benefits Name Role Phone ELIZA GARCIA Primary Care Provider [phone] ELIZA GARCIA Referring Provider [phone] Assessment No assessment recorded. Plan of Treatment Reminders Order Date Submit Date Provider Last Modified By Organization Details Last Modified Time Details Appointments None recorded. Lab None recorded. Referral None recorded. Procedures None recorded. Surgeries None recorded. Imaging None recorded. Medication Orders fluconazole 150 mg tablet 2024 025 [facility][id number], [address], [place], [place], [id number], 5 16:07:31 Zithromax Z-Miguel Ángel 250 mg tablet 2024 025 [facility] #[id number], [address], [place], [place], [id number], 5 16:07:32 prednisone 20 mg tablet 2024 025 [facility] #[id number], [address], [place], [place], [id number], 5 16:07:29 Patient TargetsNo targets recorded. Patient InstructionsNo instructions recorded. Reason for Referral None Reported. 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 Active 2022 SUNI Hollins [address], [place], [address] , [facility] [email or web address] [facility] 3 15:46:12 Liver cyst 28928990 Active 2022 SUNI Hollins [address], [place], [address] , [place] - [facility] 3 15:48:02 Pain in throat 108481457 Active 2022 Eliza Garcia MD [address], [place], [address] , [facility] [email or web address] [facility] 3 17:35:48 Pain in right foot 1632735123737 07 Active 2022 Edna Brown [facility] [place] [email or web address] [facility] 3 11:14:46 Candidiasi s of skin 99525691 Active 2023 CHELE Day [address], [place], [address] , [facility] - [facility] 4 16:13:22 Candidiasi s of vagina 84487173 Active 2023 CHELE Day [address], [place], [address] , [facility] - [facility] 5 16:06:16 Overweight 015277957 Active 2023 CHELE Day [address], [place], [address] , [facility] - [facility] 4 16:19:36 Bacterial sinusitis 076637838 Active 2024 CHELE Day [address], [facility] [address], [place], [address] , [facility] [email or web address] [facility] 5 16:05:12 Problem Notes None recorded. Procedures Surgical History Date Name Laterality Status Provider Name and Address Organization Details Recorded Time Cholecystectomy completed Not Available [facility] 10/13/2022 12:52:25 ligation of fallopian tube completed Not Available [facility] 10/13/2022 12:52:25 Unlisted procedure shoulder completed Not Available [facility] 10/13/2022 12:52:25 Imaging Results None recorded. Procedure Notes None recorded. Medical Equipment None Reported. Allergies Allergen ID Allergen Name Allergen Category Reaction Reaction Severity Criticality Documentation Date Start Date Code Code System Note Provider Name and Address Organization Details Recorded Time 89220 amoxicill in medicatio n itching moderate Not available 10/13/2022 723 RxNorm Not Available [facility] 3 12:58:44 48681 codeine medicatio n Not available Not available Not available 07/20/2023 2670 RxNorm TALYA [place], [place] [email or web address] [facility] [employer] 11:09:35 Medications Name Sig Start Date Stop [...] Not Available Not Available No t Available [employer] Thyroid 30 mg tablet TAKE 1 TABLET BY MOUTH TWICE DAILY 06/13 completed Not Available Not Available Not Available [employer] Thyroid 60 mg tablet TAKE 1 TABLET [...] Updated DateTime 5 162.56 cm 25.7 kg/m2 19756.8 6 g 97.4 [degF] 68 /min 96 % 122/82 mm[Hg] TALYA [place] [employer] [facility] 5 15:55:42 Social History Question Answer Notes LastModified by Organizat ion Details LastModified Time Tobacco Smoking Status Current Every Day Smoker Not Available [facility] 10/13/2022 12:52:10 Do You Have An Advance Directive? No [id number] Information not available 10/13/2022 What Is Your Level Of Caffeine Consumption? Heavy [id number] 026 Information not available 10/13/2022 How Much Tobacco Do You Chew? None [id number] 026 Information not available 10/13/2022 In The 14 Days Before Symptom Onset, Have You Had Close Contact With A Laboratory-confirm ed COVID-19 While That Case Was Ill? No [id number] 026 Information not available 10/13/2022 In The 14 Days Before Symptom Onset, Have You Had Close Contact With A Person Who Is Under Investigation For COVID-19 While That Person Was Ill? No [id number].[id number] 026 Information not available 10/13/2022 What Type Of Diet Are You Following? REGULAR [id number].[id number] 026 Information not available 10/13/2022 Which Illicit Or Recreational Drugs Have You Used? None [id number] 026 Information not available 10/13/2022 What Was The Date Of Your Most Recent Tobacco Screening? 07/20/2023 [email or web address] Information not available 07/20/2023 Have You Ever Been Counseled For Unhealthy Alcohol Use? No [id number].[id number] 026 Information not available 10/13/2022 At What Age Did You Start Smoking Tobacco? 15 [id number].8722121 026 Information not available 10/13/2022 How Much Tobacco Do You Smoke? 1 PPD [id number].1192507 026 Information not available 10/13/2022 Do You Use Sunscreen Routinely? Yes [id number].4849232 026 Information not available 10/13/2022 Has Tobacco Cessation Counseling Been Provided? No [id number].2178412 026 Information not available 10/13/2022 How Many Years Have You Smoked Tobacco? 46 MIGRATION.2630402 026 Information not available 10/13/2022 Do You Have Any Dietary Restrictions? No [id number].5143232 026 Information not available 10/13/2022 Sex: Unknown Functional Status Question Answer Note LastModified by Organizat ion Details LastModified Time Do you or have you ever used any other forms of tobacco or nicotine? No [id number] 026 Information not available 10/13/2022 What is your level of alcohol consumption? Occasional [id number].[id number] 026 Information not available 10/13/2022 Do you or have you ever used smokeless tobacco? Never used smokeless tobacco MIGRATION.9789443 026 Information not available 10/13/2022 What is your occupation? [place] [employer] [id number].1569580 026 Information not available 10/13/2022 Do you or have you ever used e-cigarettes or vape? Never used electronic cigarettes [id number].9029442 026 Information not available 10/13/2022 What is your exercise level? Occasional [id number].[id number] 026 Information not available 10/13/2022 Mental Status None recorded. Family History Relationship Description Onset Age of this Age Resolved Age Notes LastModified by Organization Details LastModified Time Mother Family history of malignant neoplasm [id number].[id number] Not available 10/13/2022 12:52:25 Maternal Grandmother Family history of malignant neoplasm MIGRATION.585 [id number] Not available 10/13/2022 12:52:25 Maternal Grandfather Family history of malignant neoplasm MIGRATION.250 [id number] Not available 10/13/2022 12:52:25 Paternal Grandmother Family history of malignant neoplasm MIGRATION.164 [id number] Not available 10/13/2022 12:52:25 Father Heart disease MIGRATION.041 [id number] Not available 10/13/2022 12:52:25 Medical History Condition [...] HAVE YOU BEEN HOSPITALIZED OR SEEN IN [facility] ER IN THE PAST YEAR ? N [...] Recorded Time Tdap 3 completed Not Available [facility] 04/25/2025 15:37:15 Influenza, split virus, quadrivalent, PF 6 completed Not Available [facility] 04/25/2025 15:37:15 COVID-19, mRNA, LNP-S, bivalent, PF, 30 mcg/0.3 mL dose 2 completed Not Available [facility] 04/25/2025 15:37:15 Influenza, MDCK, quadrivalent, PF 2 completed Not Available [facility] 04/25/2025 15:37:15 COVID-19, mRNA, LNP-S, PF, 30 mcg/0.3 mL dose 1 completed Not Available [facility] 10/13/2022 12:58:37 COVID-19 vaccine, vector-nr, rS-Ad26, PF, 0.5 mL 1 completed Not Available [facility] 10/13/2022 12:58:37 influenza, intradermal, quadrivalent, preservative free 0 completed Not Available [facility] 10/13/2022 12:58:37 Influenza, split virus, quadrivalent, PF 1 completed Not Available [facility] 10/13/2022 12:58:37 Influenza, split virus, trivalent, PF 4 completed Josafat Molina RN [facility], [facility] [employer] [facility] 06/13/2024 16:29:45 Past Encounters Encounter ID Performer Location Encounter Start Date Encounter Closed Date Diagnosis/Indication Diagnosis SNOMED-CT Code Diagnosis ICD10 Code Diagnosis IMO Codes Diagnosis Note [id number] CHELE Day [facility] [address] [place] [address] 04/25/2025 15:35:36 04/25/2025 16:07:25 Bacterial sinusitis 098876043 J32.9 B96.89 5987780 Candidiasis of vagina 72 282147 B37.31 009058 Health Concerns Section Related Observation LastModified by Organization Jac lujan LastModified Time None Recorded Concern Status LastModified by Organization Details LastModified Time None Recorded Payers Encounter Date Sequence Insurance Name Policy Number Policy Stiles Covered Member ID Stiles Member ID Guarantor Name 04/25/2025 1 [place] [id number] Ana Kessler [id number] Ana Kessler Notes Date Note Type Note Provider Name and Address Organization Details Recorded Time 04/25/2025 text/html ROS as noted in the HPI Patient is a 65 year old female that presents to the office for sinus infection for 4 weeks. Patient reports sinus pressure, runny nose, productive cough with brown sputum, sore throat initially. Patient denies ear pain, fevers, chest pain and shortness of breath. Patient denies known sick contacts. CHELE Day [address] [facility], [facility] [address], [place], [address], [place] [facility] 04/29/2025 09:14:59 OBGyn Episode No OBEpisode recorded.
--- OUTSIDE RECORDS SUMMARY | 2025-07-05 00:24 | XMS_ITS | Encounter Summary ---
Author Organization [facility] Care Team Providers Care Special Agent Group Insurance Name Role Phone Cullen Whelan NP Primary Care Provider [phone] Lou Garcia MD Primary Care Provider + Encounter Details Date Type Department Care Team (Latest Contact Info) Description 07/31/2018 Orders Only [facility] CLINCONV Provider, MD Stacey [address] [place] [address] Social History Tobacco Use Types Packs/Day Years Used Date Smoking Tobacco: Never Assessed Comments Unknown Sex and Gender Information Value Date Recorded Sex Assigned at Not on file 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 Historical Provider Final Res ult documented in this encounter Visit Diagnoses Not on filedocumented in this encounter Additional Health Concerns Infection Onset Date Last Indicated Resolved Time COVID: Suspected 04/13/2023 04/13/2023 04/13/2023 7:44 PM CDT COVID: Suspected 08/14/2023 08/14/2023 08/14/2023 1:02 PM [employer]P Influenza, adult 08/14/2023 08/14/2023 08/21/2023 3:05 AM [employer] SAL[employer] REP documented as of this encounter Care Teams Special Agent Group Insurance Relationship Specialty Start Date End Date Cullen Whelan, TAMANNA PCP - General Internal Medicine 04/13/23 06/08/24 Lou Garcia MD [address] [place] [address] DR DIA [address] [place] [address] PCP - General Family Medicine 06/09/24 documented as of this encounter
--- OUTSIDE RECORDS SUMMARY | 2025-07-05 00:24 | XMS_ITS | Clinical Summary ---
Author Organization [facility] Address [address] [address] Phone Care Team Providers Care Text Transcriber Name Role Phone Elisha Cohen Primary Care Provider [phone] Dianna Farooq MD Unavailable [phone] Allergies No known active allergies Medications No [...] Cancer Screening (CCS) 02/04/1992 HPV/Cotest 02/04/1992 Cologuard 2007 Immunochemical Fecal Occult Blood 2007 Pneumococcal Immunization (5 0+ years) (1 of 1 - PCV) 02/04/2012 Zoster Immunization (1 of 2) 02/04/2012 Colonoscopy 07/31/2023 07/31/2018 Colorectal Cancer Screening 07/31/2023 Influenza Immunization (#1) 2025 SARS-COV-2 Immunization (1 - season) 2025 Respiratory Syncytial Virus (RSV) Immunization (Adult) (1 - 1-dose 75+ series) 2037 Hepatitis B Immunization Aged Out No longer eligible based on patient's age to complete this topic Human Papillomavirus (HPV) Immunization Aged Out No longer eligible b ased [...] Most Recently Relevant to Health Maintenance Insurance Care Teams Text Transcriber Relationship Specialty Start Date End Date Elisha Cohen PA [address] [place] [address] PCP - General Urology 10/11/17 Dianna Farooq MD [address] [address] Obstetrics & Gynecology 10/11/17
--- OUTSIDE RECORDS SUMMARY | 2025-07-05 00:24 | XMS_ITS | Encounter Summary ---
Author Organization 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
[2025-07-05 06:19] VITALS: BP 95/52; PULSE 78; RESP 16; TEMP 36.6; O2SAT 98
[2025-07-05 06:20] VITALS: BMI 25.2
[2025-07-05] MEDS: LACTATED RINGERS 1,000 ML 150 ML IV CONT (06:35)
--- NOTE | 2025-07-05 06:55 | WPDANESEPPF ---
Anes - Initial Pre Proc Eval Procedure: Operation Date: 07/05/25 07:30 Proposed Procedures p Screening Colonoscopy - Balwinder Bustos MD Date/Time: 07/05/25 06:55 Surgeon: Balwinder Bustos MD Pre Op Diagnosis: Screening Patient Data Age: 65 Gender: F Height: 1.63 m Weight: 66.8 kg Last Vital Signs Temp 97.8 F 07/05/25 06:19 Pulse 78 07/05/25 06:19 Resp 16 07/05/25 06:19 BP 95/52 L 07/05/25 06:19 Pulse Ox 98 07/05/25 06:19 O2 Del Method Room Air 07/05/25 06:19 Allergies Allergy/AdvReac Type Severity Reaction Status Date / Time amoxicillin Allergy Mild Rash Verified 07/05/25 06:18 codeine Allergy Mild Itching Verified 07/05/25 06:18 Home Medications ?Medication ?Instructions ?Recorded ?Confirmed ?Type azelastine 137 mcg (0.1 %) nasal 1 spray intranasal Q12H #30 mL 11/18/22 07/05/25 Rx spray fluticasone propionate 50 1 - 2 spray intranasal BID #15.8 mL 11/18/22 07/05/25 Rx mcg/actuation nasal spray,suspension ezetimibe 10 mg tablet 10 mg PO DAILY 06/24/25 07/05/25 History rosuvastatin 20 mg tablet 20 mg PO DAILY 06/24/25 07/05/25 History Patient hx anesthesia problems: none Family hx anesthesia problems: none Results Review: All pre-operative results and documents have been reviewed as part of the pre-operative evaluation. [facility] Family History Family History Father Hypertension Cerebrovascular accident Mother Cerebrovascular accident Family history of lung cancer Social History Social History Smoking packs per day: 1 Smoking cigarettes per day: 20.0 Years smoked: 40 Smoking pack-years: 40.00 Smoking status: Heavy tobacco smoker Tobacco type: cigarettes Second hand tobacco smoke exposure: Yes Alcohol intake: current Substance use: never Substance use type: does not use Lack of Transportation: No Lack of Food: Never True Current Housing: I Have Housing Concerned About Future Housing: No Difficulty Paying Gas/Electric Bills: No Difficulty Paying for Meds: No Currently Unemployed: YES Education: High School Diploma/GED Difficulty w/ Childcare or Family Care: No Living arrangements: with family Spiritual care concerns: No Anes - Eval Final PreProcedure Day of Procedure 07/05/25 06:55 Patient weight: normal Lungs: normal air movement Airway: Mallampati scale class 1 Neurological: alert and oriented Last oral intake: >/= 8 hours ASA classification: II Emergent: no Anesthetic plan: proceed Anesthesia type and monitoring: general GIVS and standard monitoring Results Review: All pre-operative results and documents have been reviewed as part of the pre-operative evaluation. Hyperlipidemia, current heavy smoker, 1 ppd for 40 years and did smoke this am. S/p cardiac ablation approx 2015 for tachycardia, pt states she can walk 1-2 fos, no cp or sob. Informed Consent: The patient's anesthetic plan and its attendant risks and benefits were discussed with the patient/family/POA. Questions were solicited and answers provided to the satisfaction of the patient/family/POA.
--- NOTE | 2025-07-05 07:21 | PM.HPGS ---
History of Present Illness History of Present Illness Consent: Risks, benefits, and alternatives have been discussed and questions answered. Patient agrees to proceed with procedure. Chief complaint: Screening Narrative: Ana Kessler is a 65 year old female here for screening colonoscopy, last one 5 years ago with polyp Review of Systems Review of Systems: All systems reviewed & are unremarkable except as noted in HPI and below PMFSH Past Medical History Medical History (Updated 07/05/25 @ 07:22 by Balwinder Bustos MD) Colon polyp Family History Family History Father Hypertension Cerebrovascular accident Mother Cerebrovascular accident Family history of lung cancer Social History Social History Smoking packs per day: 1 Smoking cigarettes per day: 20.0 Years smoked: 40 Smoking pack-years: 40.00 Smoking status: Heavy tobacco smoker Tobacco type: cigarettes Second hand tobacco smoke exposure: Yes Alcohol intake: current Substance use: never Substance use type: does not use Lack of Transportation: No Lack of Food: Never True Current Housing: I Have Housing Concerned About Future Housing: No Difficulty Paying Gas/Electric Bills: No Difficulty Paying for Meds: No Currently Unemployed: YES Education: High School Diploma/GED Difficulty w/ Childcare or Family Care: No Living arrangements: with family Spiritual care concerns: No Meds Home Medications and Allergies Home Medications ?Medication ?Instructions ?Recorded ?Confirmed ?Type azelastine 137 mcg (0.1 %) nasal 1 spray intranasal Q12H #30 mL 11/18/22 07/05/25 Rx spray fluticasone propionate 50 1 - 2 spray intranasal BID #15.8 mL 11/18/22 07/05/25 Rx mcg/actuation nasal spray,suspension ezetimibe 10 mg tablet 10 mg PO DAILY 06/24/25 07/05/25 History rosuvastatin 20 mg tablet 20 mg PO DAILY 06/24/25 07/05/25 History Allergies Allergy/AdvReac Type Severity Reaction Status Date / Time amoxicillin Allergy Mild Rash Verified 07/05/25 06:18 codeine Allergy Mild Itching Verified 07/05/25 06:18 Vital Signs Vital Signs - 24 hr 07/05/25 06:19 Temperature 97.8 F Pulse Rate 78 Respiratory Rate 16 Blood Pressure 95/52 L Pulse Oximetry 98 Oxygen Delivery Room Air Exam Const: General: comfortable and no acute distress HENMT: Face/Nose/Sinus: Normal nares present Eyes: General: appearance normal, both eyes and all related structures Resp: Auscultation: clear to auscultation bilaterally Cardio: Rate: regular rate Rhythm: regular rhythm GI: Inspection: non-distended GI Palp: Yes Soft to palpation Skin: General skin exam: normal color Extrem: General: normal to inspection Psych: Mental Status: mental status grossly normal Assessment and Plan Assessment and plan (1) Colon polyp: Code(s): K63.5 - Polyp of colon Status: Acute Assessment and Plan: colonoscopy
[2025-07-05 07:46] VITALS: BP 75/41; PULSE 73; RESP 16; O2SAT 97
[2025-07-05 07:56] VITALS: BP 93/47; PULSE 86; RESP 17; O2SAT 98
[2025-07-05 08:06] VITALS: BP 101/57; PULSE 86; RESP 17; O2SAT 98
== END 2025-07-05 08:15 | disposition home or self-care (01) ==
PROVIDERS: PCP Nurse Practitioner Family; Visit Provider Internal Medicine Gastroenterology
PROC: 0DJD8ZZ Inspection of Lower Intestinal Tract, Via Natural or Artificial Opening Endoscopic (ICD-10-PCS; CPT 45378; principal; 2025-07-05 07:30)
DX: Z12.11 Encounter for screening for malignant neoplasm of colon (principal); K57.30 Diverticulosis of large intestine without perforation or abscess without bleeding; K64.8 Other hemorrhoids; F17.210 Nicotine dependence, cigarettes, uncomplicated
CPT/HCPCS: 45378; J2003; J2704; J7120